=== PATIENT | female | born 1945 | race African-American/Black ===

== ENCOUNTER → 2017-07-21 | Outpatient (CLI) | payer MEDICARE, MEDICAID | END | disposition home or self-care (01) | LOC: RAD 11:14 | DX: M19.011 Primary osteoarthritis, right shoulder (principal); M47.892 Other spondylosis, cervical region | CPT/HCPCS: 72040; 73030 ==

== ENCOUNTER → 2019-07-23 | Outpatient (CLI) | payer MEDICARE, MEDICAID | END | disposition home or self-care (01) | LOC: RAD 09:58 | PROVIDERS: ATTEND Orthopaedic Surgery | DX: M17.0 Bilateral primary osteoarthritis of knee (principal); M47.896 Other spondylosis, lumbar region; M21.959 Unspecified acquired deformity of unspecified thigh | CPT/HCPCS: 72100; 72170; 73560 ==

== ENCOUNTER → 2019-10-01 | Outpatient (CLI) | payer MEDICARE, MEDICAID | END | disposition home or self-care (01) | LOC: MRI 09:18 | PROVIDERS: ATTEND Neurological Surgery | DX: M43.12 Spondylolisthesis, cervical region (principal); M47.812 Spondylosis without myelopathy or radiculopathy, cervical region; M48.02 Spinal stenosis, cervical region; M51.36 Other intervertebral disc degeneration, lumbar region; M48.061 Spinal stenosis, lumbar region without neurogenic claudication | CPT/HCPCS: 72141; 72148 ==

== ENCOUNTER 2020-06-05 17:35 | Inpatient (IN) | payer MEDICARE, MEDICAID ==
[~2020-06-05] VITALS: Ht 165.1 cm; Wt 154.3 kg
[~2020-06-05 17:35] MED LIST: AMLO10TA80 PO; ATOR10TA69 PO; COR6 PO; FURO-151 MT; FURO40TA5 PO; GABA-533 PO; HYDR-4009 PO; LOSA50TA41 MT; PANT40TA4 PO
[2020-06-05 18:15] VITALS: BP 117/54
[2020-06-05] MEDS ORDERED: IPRATROPIUM/ALBUTEROL 0.5-3(2.5)MG/3ML NEB HHN PRN (18:30)
[2020-06-05] MEDS ORDERED: MORPHINE SULFATE 2 MG/ML CPJ (NOT FOR IM USE) IV PRN (18:30)
[2020-06-05] MEDS ORDERED: CLONIDINE 0.1MG TABLET PO PRN (18:30)
[2020-06-05] MEDS ORDERED: ONDANSETRON 4MG ODT PO PRN (18:30)
[2020-06-05] MEDS ORDERED: BISACODYL 10MG SUPP PR PRN (18:30)
[2020-06-05 20:00] VITALS: BP 135/86
[2020-06-05 20:30] VITALS: BP 134/58
[2020-06-06] MEDS: HYDROCODONE/ACETAMINOPHEN 5/325MG TABLET PO PRN ×5 (00:52→23:08)
[2020-06-06] MEDS: ENOXAPARIN 30MG/0.3ML SYR SUBCUT SCH ×2 (06:34→18:01)
[2020-06-06 07:14] LABS: HEMATOCRIT. 35.8 % (36.0-48.0); HEMOGLOBIN. 11.8 g/dL (12.0-16.0); MEAN CORPUSCULAR HEMOGLOBIN 33.2 pg (28.0-32.0); MEAN CORPUSCULAR VOLUME 100.4 fL (81.0-99.0); MEAN PLATELET VOLUME 7.3 fl (7.4-10.4); PLATELET 163 x1000/uL (130-400); RED BLOOD CELL COUNT 3.56 mill/uL (4.2-5.4)
[2020-06-06 07:25] LABS: CHLORIDE 100 mEq/L (98-107)
[2020-06-06 08:00] VITALS: BP 104/60
[2020-06-06] MEDS: POTASSIUM CHLORIDE 20MEQ TABLET SR PO SCH (08:14)
[2020-06-06] MEDS: THIAMINE HCL 100MG TABLET PO SCH (08:15)
[2020-06-06] MEDS: FUROSEMIDE 40MG TABLET PO SCH (08:15)
[2020-06-06] MEDS: SPIRONOLACTONE 25MG TABLET PO SCH (08:15)
[2020-06-06] MEDS: AMLODIPINE 10MG TABLET PO SCH ×2 (08:16→08:20)
[2020-06-06] MEDS: LISINOPRIL 40MG TABLET PO SCH ×2 (08:18→08:21)
[2020-06-06 17:12] LABS: CLARITY URINE TURBID (CLEAR); COLOR URINE YELLOW (YELLOW); KETONES URINE NEGATIVE (NEGATIVE); LEUKOCYTE ESTERASE URINE 3+ (NEGATIVE); NITRITE URINE POSITIVE (NEGATIVE); OCCULT BLOOD URINE 1+ (NEGATIVE); PH URINE 7.5 (4.5-8.0); PROTEIN URINE 1+ (NEGATIVE); SPECIFIC GRAVITY URINE 1.013 (1.005-1.030)
[2020-06-06 19:07] LABS: PLATELET ESTIMATE NORMAL
[2020-06-06 20:00] VITALS: BP 112/64
[2020-06-06] MEDS: MEROPENEM 1,000 MG in SODIUM CHLORIDE 0.9% 100 ML IV SCH (22:39)
[2020-06-07] MEDS: LORAZEPAM 0.5MG TABLET PO PRN ×2 (02:30→22:19)
[2020-06-07] MEDS: MEROPENEM 1,000 MG in SODIUM CHLORIDE 0.9% 100 ML IV SCH ×3 (06:15→18:42)
[2020-06-07] MEDS: ENOXAPARIN 30MG/0.3ML SYR SUBCUT SCH ×2 (06:16→17:07)
[2020-06-07 06:27] LABS: CHLORIDE 102 mEq/L (98-107)
[2020-06-07 06:32] LABS: PHOSPHORUS 4.2 mg/dL (2.5-4.9); TOTAL IRON BINDING CAPACITY 222 ug/dL (250-450)
[2020-06-07 06:35] LABS: CREATINE KINASE 113 IU/L (26-192)
[2020-06-07 06:45] LABS: FERRITIN 237 ng/mL (10-291)
[2020-06-07 06:46] LABS: HEMATOCRIT. 34.2 % (36.0-48.0); HEMOGLOBIN. 11.5 g/dL (12.0-16.0); MEAN CORPUSCULAR HEMOGLOBIN 33.9 pg (28.0-32.0); MEAN CORPUSCULAR VOLUME 100.9 fL (81.0-99.0); MEAN PLATELET VOLUME 7.3 fl (7.4-10.4); PLATELET 163 x1000/uL (130-400); RED BLOOD CELL COUNT 3.39 mill/uL (4.2-5.4)
[2020-06-07 06:57] LABS: VITAMIN B12 SERUM 291 pg/mL (211-911)
[2020-06-07 08:05] VITALS: BP 147/80
[2020-06-07] MEDS: POTASSIUM CHLORIDE 20MEQ TABLET SR PO SCH (08:42)
[2020-06-07] MEDS: SPIRONOLACTONE 25MG TABLET PO SCH (08:42)
[2020-06-07] MEDS: FUROSEMIDE 40MG TABLET PO SCH (08:43)
[2020-06-07] MEDS: THIAMINE HCL 100MG TABLET PO SCH (08:43)
[2020-06-07] MEDS: LISINOPRIL 40MG TABLET PO SCH (08:43)
[2020-06-07] MEDS: AMLODIPINE 10MG TABLET PO SCH (08:43)
[2020-06-07] MEDS: HYDROCODONE/ACETAMINOPHEN 5/325MG TABLET PO PRN ×2 (08:44→15:33)
[2020-06-07] MEDS: CYANOCOBALAMIN 1000MCG/ML VIAL IM SCH (15:20)
[2020-06-07] MEDS: LIDOCAINE 5% PATCH TOP SCH (17:05)
[2020-06-07 20:00] VITALS: BP 111/63
[2020-06-07 22:59] LABS: PLATELET ESTIMATE NORMAL
[2020-06-08] MEDS: MEROPENEM 1,000 MG in SODIUM CHLORIDE 0.9% 100 ML IV SCH ×3 (06:43→11:26)
[2020-06-08] MEDS: ENOXAPARIN 30MG/0.3ML SYR SUBCUT SCH ×2 (06:44→17:08)
[2020-06-08 07:52] VITALS: BP 149/84
[2020-06-08] MEDS: POTASSIUM CHLORIDE 20MEQ TABLET SR PO SCH (08:47)
[2020-06-08] MEDS: LISINOPRIL 40MG TABLET PO SCH (08:47)
[2020-06-08] MEDS: CYANOCOBALAMIN 1000MCG/ML VIAL IM SCH (08:47)
[2020-06-08] MEDS: AMLODIPINE 10MG TABLET PO SCH (08:48)
[2020-06-08] MEDS: FUROSEMIDE 40MG TABLET PO SCH (08:48)
[2020-06-08] MEDS: LIDOCAINE 5% PATCH TOP SCH (08:48)
[2020-06-08] MEDS: SPIRONOLACTONE 25MG TABLET PO SCH (08:48)
[2020-06-08] MEDS: THIAMINE HCL 100MG TABLET PO SCH (09:04)
[2020-06-08 13:49] VITALS: BP 105/56
[2020-06-08] MEDS: HYDROCODONE/ACETAMINOPHEN 5/325MG TABLET PO PRN ×2 (13:51→18:28)
[2020-06-08 18:20] VITALS: BP 128/69
[2020-06-08] MEDS ORDERED: BISACODYL 5MG TABLET PO NR (18:45)
[2020-06-08] MEDS: NITROFURANTOIN 100MG M/M CAPSULE PO SCH (21:01)
[2020-06-08] MEDS: LORAZEPAM 0.5MG TABLET PO PRN (21:02)
[2020-06-09] MEDS: ENOXAPARIN 30MG/0.3ML SYR SUBCUT SCH ×2 (06:12→17:04)
[2020-06-09] MEDS: HYDROCODONE/ACETAMINOPHEN 5/325MG TABLET PO PRN ×2 (06:46→13:47)
[2020-06-09 07:35] VITALS: BP 116/61
[2020-06-09] MEDS: CYANOCOBALAMIN 1000MCG/ML VIAL IM SCH (08:30)
[2020-06-09] MEDS: LIDOCAINE 5% PATCH TOP SCH (08:30)
[2020-06-09] MEDS: NITROFURANTOIN 100MG M/M CAPSULE PO SCH ×2 (08:30→21:16)
[2020-06-09] MEDS: FUROSEMIDE 40MG TABLET PO SCH (08:30)
[2020-06-09] MEDS: SPIRONOLACTONE 25MG TABLET PO SCH (08:30)
[2020-06-09] MEDS: THIAMINE HCL 100MG TABLET PO SCH (08:30)
[2020-06-09] MEDS: AMLODIPINE 10MG TABLET PO SCH (08:30)
[2020-06-09] MEDS: LISINOPRIL 40MG TABLET PO SCH (08:30)
[2020-06-09] MEDS: POTASSIUM CHLORIDE 20MEQ TABLET SR PO SCH (08:30)
[2020-06-09] MEDS ORDERED: BISACODYL 5MG TABLET PO PRN (13:30)
[2020-06-09 20:00] VITALS: BP 114/59
[2020-06-09] MEDS: LORAZEPAM 0.5MG TABLET PO PRN (21:16)
[2020-06-09] MEDS: GABAPENTIN 100MG CAPSULE PO SCH (21:16)
[2020-06-10] MEDS: GABAPENTIN 100MG CAPSULE PO SCH ×3 (06:28→21:37)
[2020-06-10] MEDS: ENOXAPARIN 30MG/0.3ML SYR SUBCUT SCH ×2 (06:29→09:35)
[2020-06-10] MEDS: HYDROCODONE/ACETAMINOPHEN 5/325MG TABLET PO PRN ×2 (07:38→12:11)
[2020-06-10 07:47] LABS: HEMATOCRIT. 36.3 % (36.0-48.0); HEMOGLOBIN. 12.1 g/dL (12.0-16.0); MEAN CORPUSCULAR HEMOGLOBIN 33.7 pg (28.0-32.0); MEAN CORPUSCULAR VOLUME 100.6 fL (81.0-99.0); MEAN PLATELET VOLUME 7.2 fl (7.4-10.4); PLATELET 184 x1000/uL (130-400); RED CELL DISTRIBUTION WIDTH 13.9 % (11.6-14.6)
[2020-06-10 07:56] LABS: CHLORIDE 106 mEq/L (98-107)
[2020-06-10 08:30] VITALS: BP 131/73
[2020-06-10] MEDS: LIDOCAINE 5% PATCH TOP SCH (09:34)
[2020-06-10] MEDS: THIAMINE HCL 100MG TABLET PO SCH (09:36)
[2020-06-10] MEDS: FUROSEMIDE 40MG TABLET PO SCH (09:36)
[2020-06-10] MEDS: SPIRONOLACTONE 25MG TABLET PO SCH (09:36)
[2020-06-10] MEDS: AMLODIPINE 10MG TABLET PO SCH (09:36)
[2020-06-10] MEDS: NITROFURANTOIN 100MG M/M CAPSULE PO SCH ×2 (09:36→21:37)
[2020-06-10] MEDS: LISINOPRIL 40MG TABLET PO SCH (09:36)
[2020-06-10] MEDS: POTASSIUM CHLORIDE 20MEQ TABLET SR PO SCH (09:36)
[2020-06-10] MEDS: CYANOCOBALAMIN 1000MCG/ML VIAL IM SCH (09:38)
[2020-06-10 14:06] LABS: PLATELET ESTIMATE NORMAL
[2020-06-10 20:00] VITALS: BP 111/57
[2020-06-11] MEDS: GABAPENTIN 100MG CAPSULE PO SCH ×3 (06:19→21:35)
[2020-06-11] MEDS: ENOXAPARIN 30MG/0.3ML SYR SUBCUT SCH ×2 (06:24→17:12)
[2020-06-11 07:52] VITALS: BP 111/53
[2020-06-11] MEDS: LIDOCAINE 5% PATCH TOP SCH (08:36)
[2020-06-11] MEDS: SPIRONOLACTONE 25MG TABLET PO SCH (08:37)
[2020-06-11] MEDS: CYANOCOBALAMIN 1000MCG/ML VIAL IM SCH (08:37)
[2020-06-11] MEDS: POTASSIUM CHLORIDE 20MEQ TABLET SR PO SCH (08:37)
[2020-06-11] MEDS: NITROFURANTOIN 100MG M/M CAPSULE PO SCH ×2 (08:37→21:34)
[2020-06-11] MEDS: LISINOPRIL 40MG TABLET PO SCH (08:38)
[2020-06-11] MEDS: FUROSEMIDE 40MG TABLET PO SCH (08:38)
[2020-06-11] MEDS: AMLODIPINE 10MG TABLET PO SCH (08:38)
[2020-06-11] MEDS: THIAMINE HCL 100MG TABLET PO SCH (13:07)
[2020-06-11 17:06] LABS: 25-HYDROXY VITAMIN D3 20 ng/mL (.)
[2020-06-11 22:20] VITALS: BP 129/66
[2020-06-12] MEDS: GABAPENTIN 100MG CAPSULE PO SCH ×3 (06:21→21:52)
[2020-06-12] MEDS: ENOXAPARIN 30MG/0.3ML SYR SUBCUT SCH ×2 (06:22→17:00)
[2020-06-12 08:00] VITALS: BP 122/58
[2020-06-12] MEDS: LIDOCAINE 5% PATCH TOP SCH (08:18)
[2020-06-12] MEDS: POTASSIUM CHLORIDE 20MEQ TABLET SR PO SCH (08:19)
[2020-06-12] MEDS: SPIRONOLACTONE 25MG TABLET PO SCH (08:19)
[2020-06-12] MEDS: FUROSEMIDE 40MG TABLET PO SCH (08:19)
[2020-06-12] MEDS: CYANOCOBALAMIN 1000MCG/ML VIAL IM SCH (08:19)
[2020-06-12] MEDS: THIAMINE HCL 100MG TABLET PO SCH (08:20)
[2020-06-12] MEDS: AMLODIPINE 10MG TABLET PO SCH (08:20)
[2020-06-12] MEDS: LISINOPRIL 40MG TABLET PO SCH (08:20)
[2020-06-12] MEDS: NITROFURANTOIN 100MG M/M CAPSULE PO SCH ×2 (08:20→21:52)
[2020-06-12] MEDS: HYDROCODONE/ACETAMINOPHEN 5/325MG TABLET PO PRN ×2 (08:20→14:19)
[2020-06-12 20:00] VITALS: BP 109/70
[2020-06-13] VITALS: BP 117/62
[2020-06-13] MEDS: GABAPENTIN 100MG CAPSULE PO SCH ×3 (05:38→21:26)
[2020-06-13] MEDS: ENOXAPARIN 30MG/0.3ML SYR SUBCUT SCH ×2 (05:39→17:10)
[2020-06-13 07:56] VITALS: BP 117/64
[2020-06-13] MEDS: LIDOCAINE 5% PATCH TOP SCH (08:15)
[2020-06-13] MEDS: CYANOCOBALAMIN 1000MCG/ML VIAL IM SCH (08:15)
[2020-06-13] MEDS: FUROSEMIDE 40MG TABLET PO SCH (08:16)
[2020-06-13] MEDS: HYDROCODONE/ACETAMINOPHEN 5/325MG TABLET PO PRN ×2 (08:16→12:41)
[2020-06-13] MEDS: LISINOPRIL 40MG TABLET PO SCH (08:16)
[2020-06-13] MEDS: POTASSIUM CHLORIDE 20MEQ TABLET SR PO SCH (08:16)
[2020-06-13] MEDS: NITROFURANTOIN 100MG M/M CAPSULE PO SCH ×2 (08:16→21:26)
[2020-06-13] MEDS: THIAMINE HCL 100MG TABLET PO SCH (08:16)
[2020-06-13] MEDS: SPIRONOLACTONE 25MG TABLET PO SCH (08:16)
[2020-06-13] MEDS: AMLODIPINE 10MG TABLET PO SCH (08:16)
[2020-06-13 12:06] VITALS: BP 107/65
[2020-06-13] MEDS: ERGOCALCIFEROL 50000UNITS CAPSULE PO SCH (13:36)
[2020-06-13 20:00] VITALS: BP 120/67
[2020-06-14] MEDS: ENOXAPARIN 30MG/0.3ML SYR SUBCUT SCH (05:25)
[2020-06-14] MEDS: GABAPENTIN 100MG CAPSULE PO SCH ×3 (05:25→21:08)
[2020-06-14 06:53] LABS: CHLORIDE 107 mEq/L (98-107)
[2020-06-14 07:07] LABS: HEMATOCRIT. 35.1 % (36.0-48.0); HEMOGLOBIN. 11.8 g/dL (12.0-16.0); MEAN CORPUSCULAR HEMOGLOBIN 33.8 pg (28.0-32.0); MEAN CORPUSCULAR VOLUME 100.4 fL (81.0-99.0); MEAN PLATELET VOLUME 7.4 fl (7.4-10.4); PLATELET 209 x1000/uL (130-400); RED CELL DISTRIBUTION WIDTH 13.5 % (11.6-14.6)
[2020-06-14] MEDS: HYDROCODONE/ACETAMINOPHEN 5/325MG TABLET PO PRN ×3 (08:03→16:32)
[2020-06-14 08:24] VITALS: BP 99/55
[2020-06-14] MEDS: LISINOPRIL 40MG TABLET PO SCH (09:00)
[2020-06-14] MEDS: AMLODIPINE 10MG TABLET PO SCH (09:00)
[2020-06-14] MEDS: LIDOCAINE 5% PATCH TOP SCH (09:47)
[2020-06-14] MEDS: THIAMINE HCL 100MG TABLET PO SCH (09:47)
[2020-06-14] MEDS: SPIRONOLACTONE 25MG TABLET PO SCH (09:47)
[2020-06-14] MEDS: FUROSEMIDE 40MG TABLET PO SCH (09:47)
[2020-06-14] MEDS: POTASSIUM CHLORIDE 20MEQ TABLET SR PO SCH (09:47)
[2020-06-14 10:40] LABS: PLATELET ESTIMATE NORMAL
[2020-06-14] MEDS ORDERED: SIMETHICONE 80MG TABLET CHEW PO PRN (12:15)
[2020-06-14] MEDS: LIDOCAINE HCL 4% CREAM 76GM TUBE TP SCH (16:33)
[2020-06-14] MEDS: ENOXAPARIN 40MG/0.4ML SYR SUBCUT SCH (17:04)
[2020-06-14 20:00] VITALS: BP 105/59
[2020-06-15] MEDS: ENOXAPARIN 40MG/0.4ML SYR SUBCUT SCH ×2 (06:23→17:05)
[2020-06-15] MEDS: GABAPENTIN 100MG CAPSULE PO SCH ×3 (06:23→22:04)
[2020-06-15 08:00] VITALS: BP 113/55
[2020-06-15] MEDS: LISINOPRIL 40MG TABLET PO SCH (08:15)
[2020-06-15] MEDS: SPIRONOLACTONE 25MG TABLET PO SCH (08:15)
[2020-06-15] MEDS: FUROSEMIDE 40MG TABLET PO SCH (08:15)
[2020-06-15] MEDS: AMLODIPINE 10MG TABLET PO SCH (08:15)
[2020-06-15] MEDS: HYDROCODONE/ACETAMINOPHEN 5/325MG TABLET PO PRN ×2 (08:16→11:57)
[2020-06-15] MEDS: POTASSIUM CHLORIDE 20MEQ TABLET SR PO SCH (08:16)
[2020-06-15] MEDS: LIDOCAINE HCL 4% CREAM 76GM TUBE TP SCH ×4 (08:19→16:23)
[2020-06-15] MEDS: THIAMINE HCL 100MG TABLET PO SCH (08:20)
[2020-06-15 20:00] VITALS: BP 132/73
[2020-06-15] MEDS: ACETAMINOPHEN 325MG TABLET PO PRN (20:51)
[2020-06-15] MEDS ORDERED: NA PHOS,M-B/NA PHOS,DI-BA ENEMA 118ML PR PRN (21:30)
[2020-06-16] MEDS ORDERED: LACTULOSE 20G/30ML UDC PO SCH
[2020-06-16] MEDS: GABAPENTIN 100MG CAPSULE PO SCH ×3 (05:31→21:42)
[2020-06-16] MEDS: ENOXAPARIN 40MG/0.4ML SYR SUBCUT SCH ×2 (05:32→17:11)
[2020-06-16 08:00] VITALS: BP 113/62
[2020-06-16] MEDS ORDERED: LACTULOSE 20G/30ML UDC PO PRN (09:00)
[2020-06-16] MEDS: LISINOPRIL 40MG TABLET PO SCH (09:03)
[2020-06-16] MEDS: AMLODIPINE 10MG TABLET PO SCH (09:03)
[2020-06-16] MEDS: THIAMINE HCL 100MG TABLET PO SCH (09:04)
[2020-06-16] MEDS: ACETAMINOPHEN 325MG TABLET PO PRN (09:04)
[2020-06-16] MEDS: POTASSIUM CHLORIDE 20MEQ TABLET SR PO SCH (09:04)
[2020-06-16] MEDS: SPIRONOLACTONE 25MG TABLET PO SCH (09:04)
[2020-06-16] MEDS: LIDOCAINE HCL 4% CREAM 76GM TUBE TP SCH ×3 (09:05→17:11)
[2020-06-16] MEDS: DOCUSATE SODIUM 100MG CAPSULE PO SCH ×2 (11:15→12:31)
[2020-06-16 20:00] VITALS: BP 110/59
[2020-06-16] MEDS: HYDROCODONE/ACETAMINOPHEN 5/325MG TABLET PO PRN (20:50)
[2020-06-17] MEDS: GABAPENTIN 100MG CAPSULE PO SCH ×3 (05:31→21:40)
[2020-06-17] MEDS: ENOXAPARIN 40MG/0.4ML SYR SUBCUT SCH ×2 (05:31→17:04)
[2020-06-17 07:18] LABS: BASOPHILS % 0.7 % (0.0-2.0); EOSINOPHILS % 2.6 % (0.0-5.0); HEMATOCRIT. 36.9 % (36.0-48.0); HEMOGLOBIN. 12.4 g/dL (12.0-16.0); MEAN CORPUSCULAR HEMOGLOBIN 34.1 pg (28.0-32.0); MEAN PLATELET VOLUME 7.5 fl (7.4-10.4); MONOCYTES % 14.2 % (2.0-8.0); NEUTROPHILS % 34.5 % (40.0-76.0); PLATELET 219 x1000/uL (130-400); RED BLOOD CELL COUNT 3.65 mill/uL (4.2-5.4); RED CELL DISTRIBUTION WIDTH 13.4 % (11.6-14.6)
[2020-06-17 08:00] VITALS: BP 99/40
[2020-06-17] MEDS: LISINOPRIL 40MG TABLET PO SCH ×2 (09:00→10:14)
[2020-06-17] MEDS: AMLODIPINE 10MG TABLET PO SCH (09:00)
[2020-06-17] MEDS: DOCUSATE SODIUM 100MG CAPSULE PO SCH (09:00)
[2020-06-17] MEDS: THIAMINE HCL 100MG TABLET PO SCH (09:31)
[2020-06-17] MEDS: LIDOCAINE HCL 4% CREAM 76GM TUBE TP SCH ×3 (09:31→17:04)
[2020-06-17 10:12] VITALS: BP 112/56
[2020-06-17] MEDS: HYDROCODONE/ACETAMINOPHEN 5/325MG TABLET PO PRN (10:13)
[2020-06-17] MEDS: SPIRONOLACTONE 25MG TABLET PO SCH (10:14)
[2020-06-17 20:00] VITALS: BP 98/44
[2020-06-18] MEDS: ACETAMINOPHEN 325MG TABLET PO PRN ×2 (02:07→18:06)
[2020-06-18] MEDS: ENOXAPARIN 40MG/0.4ML SYR SUBCUT SCH ×2 (06:00→17:26)
[2020-06-18] MEDS: GABAPENTIN 100MG CAPSULE PO SCH ×3 (06:01→21:58)
[2020-06-18 07:24] LABS: CHLORIDE 105 mEq/L (98-107)
[2020-06-18 07:58] VITALS: BP 109/62
[2020-06-18 08:48] VITALS: BP 81/40
[2020-06-18] MEDS: THIAMINE HCL 100MG TABLET PO SCH (08:49)
[2020-06-18] MEDS: DOCUSATE SODIUM 100MG CAPSULE PO SCH (08:49)
[2020-06-18] MEDS: AMLODIPINE 10MG TABLET PO SCH (08:55)
[2020-06-18] MEDS: LIDOCAINE HCL 4% CREAM 76GM TUBE TP SCH ×3 (10:11→17:27)
[2020-06-18 10:12] VITALS: BP 117/61
[2020-06-18] MEDS: SPIRONOLACTONE 25MG TABLET PO SCH (10:13)
[2020-06-18] MEDS: LACTULOSE 20G/30ML UDC PO SCH ×3 (12:00→19:37)
[2020-06-18] MEDS: BISACODYL 10MG SUPP PR SCH (12:45)
[2020-06-18 20:00] VITALS: BP 115/63
[2020-06-18 23:45] LABS: VITAMIN B12 SERUM > 2000.0 pg/mL (211-911)
[2020-06-19] MEDS: GABAPENTIN 100MG CAPSULE PO SCH ×3 (05:48→21:07)
[2020-06-19] MEDS: ENOXAPARIN 40MG/0.4ML SYR SUBCUT SCH ×2 (05:49→17:06)
[2020-06-19 07:18] LABS: CHLORIDE 108 mEq/L (98-107)
[2020-06-19 08:00] VITALS: BP 110/56
[2020-06-19] MEDS: LISINOPRIL 40MG TABLET PO SCH (08:22)
[2020-06-19] MEDS: DOCUSATE SODIUM 100MG CAPSULE PO SCH (08:22)
[2020-06-19] MEDS: THIAMINE HCL 100MG TABLET PO SCH (08:22)
[2020-06-19] MEDS: HYDROCODONE/ACETAMINOPHEN 5/325MG TABLET PO PRN ×3 (08:23→17:49)
[2020-06-19] MEDS: LIDOCAINE HCL 4% CREAM 76GM TUBE TP SCH ×3 (08:25→17:07)
[2020-06-19] MEDS: BISACODYL 10MG SUPP PR SCH (09:00)
[2020-06-19] MEDS: FUROSEMIDE 20MG TABLET PO SCH (17:04)
[2020-06-19 20:00] VITALS: BP 111/60
[2020-06-20] MEDS: GABAPENTIN 100MG CAPSULE PO SCH ×2 (06:10→13:31)
[2020-06-20] MEDS: ENOXAPARIN 40MG/0.4ML SYR SUBCUT SCH (06:10)
[2020-06-20 08:00] VITALS: BP 120/70
[2020-06-20] MEDS ORDERED: CYANOCOBALAMIN 1000MCG/ML VIAL IM SCH (09:00)
[2020-06-20] MEDS: BISACODYL 10MG SUPP PR SCH (09:00)
[2020-06-20] MEDS: ERGOCALCIFEROL 50000UNITS CAPSULE PO SCH (09:54)
[2020-06-20] MEDS: DOCUSATE SODIUM 100MG CAPSULE PO SCH (09:54)
[2020-06-20] MEDS: THIAMINE HCL 100MG TABLET PO SCH (09:54)
[2020-06-20] MEDS: FUROSEMIDE 20MG TABLET PO SCH (09:54)
[2020-06-20] MEDS: LISINOPRIL 40MG TABLET PO SCH (09:54)
[2020-06-20] MEDS: LIDOCAINE HCL 4% CREAM 76GM TUBE TP SCH ×2 (09:55→13:31)
[2020-06-20] MEDS ORDERED: GABA-529 PO (10:12)
[2020-06-20 11:25] VITALS: BP 120/70
== END 2020-06-20 15:00 | disposition home health service (06) | DRG 947 ==
PROVIDERS: ADMIT Physical Medicine & Rehabilitation Spinal Cord Injury Medicine; ATTEND Internal Medicine Nephrology
DX: R53.81 Other malaise (principal); I50.33 Acute on chronic diastolic (congestive) heart failure; G82.50 Quadriplegia, unspecified; E44.1 Mild protein-calorie malnutrition; K59.2 Neurogenic bowel, not elsewhere classified; M48.02 Spinal stenosis, cervical region; N39.0 Urinary tract infection, site not specified; Z68.43 Body mass index [BMI] 50.0-59.9, adult; M48.061 Spinal stenosis, lumbar region without neurogenic claudication; I11.0 Hypertensive heart disease with heart failure; D64.9 Anemia, unspecified; E87.6 Hypokalemia; E78.5 Hyperlipidemia, unspecified; E66.01 Morbid (severe) obesity due to excess calories; M94.0 Chondrocostal junction syndrome [Tietze]; N31.9 Neuromuscular dysfunction of bladder, unspecified
CPT/HCPCS: 36415; 80048; 80053; 81003; 82306; 82550; 82607; 82728; 82746; 83540; 83550; 83735; 84100; 84134; 84443; 85025; 87077; 87186; 93970; 97110; 97116; 97162; 97166; 97530; 97535; 97542; J1650; J2185; J2270; J3420; J7050; Q0162

== ENCOUNTER 2020-06-26 17:42 | Inpatient (IN) | payer MEDICARE, MEDICAID ==
[~2020-06-26] VITALS: Ht 165.1 cm; Wt 125.6 kg
[2020-06-26] MEDS: THIAMINE HCL 100MG TABLET PO SCH (02:35)
[~2020-06-26 17:42] MED LIST changes: -FURO-151 MT; +GABA-529 PO
[2020-06-26 19:08] LABS: BASOPHILS % 0.3 % (0.0-2.0); EOSINOPHILS % 2.8 % (0.0-5.0); HEMATOCRIT. 37.6 % (36.0-48.0); HEMOGLOBIN. 12.5 g/dL (12.0-16.0); MEAN CORPUSCULAR HEMOGLOBIN 33.4 pg (28.0-32.0); MEAN CORPUSCULAR VOLUME 100.4 fL (81.0-99.0); MEAN PLATELET VOLUME 7.1 fl (7.4-10.4); NEUTROPHILS % 60.9 % (40.0-76.0); PLATELET 232 x1000/uL (130-400); RED BLOOD CELL COUNT 3.74 mill/uL (4.2-5.4); RED CELL DISTRIBUTION WIDTH 12.8 % (11.6-14.6)
[2020-06-26 19:13] LABS: CHLORIDE 94 mEq/L (98-107)
[2020-06-26] MEDS ORDERED: ACETAMINOPHEN 325MG TABLET PO ONE (20:00)
[2020-06-26] MEDS ORDERED: FUROSEMIDE 40MG/4ML VIAL IV STA (20:07)
[2020-06-26] MEDS ORDERED: INSULIN REGULAR (HUMULIN R) 300UNITS/3ML IV ONE (20:15)
[2020-06-26] MEDS ORDERED: CALCIUM GLUCONATE 100MG/ML 10ML VIAL IV ONE (20:15)
[2020-06-26] MEDS ORDERED: SODIUM CHLORIDE 0.9% 250 ML IV ONE (20:15)
[2020-06-26] MEDS ORDERED: DEXTROSE 50% WATER 50ML SYRINGE IV ONE ×2 (20:15→22:30)
[2020-06-26] MEDS ORDERED: SODIUM POLYSTYRENE SULFONATE 15 G/60 ML BOT PO ONE (21:45)
[2020-06-26] MEDS ORDERED: SODIUM CHLORIDE 0.9% 1,000 ML IV NR (23:00)
[2020-06-26] MEDS ORDERED: ACETAMINOPHEN 325MG TABLET PO PRN (23:45)
[2020-06-26] MEDS ORDERED: ONDANSETRON HCL 4MG/2ML INJ IV PRN (23:45)
[2020-06-26] MEDS ORDERED: MORPHINE SULFATE 2 MG/ML CPJ (NOT FOR IM USE) IV PRN (23:45)
[2020-06-26] MEDS ORDERED: HYDROCODONE/ACETAMINOPHEN 5/325MG TABLET PO PRN (23:45)
[2020-06-26] MEDS ORDERED: CLONIDINE 0.1MG TABLET PO PRN (23:45)
[2020-06-26] MEDS ORDERED: IPRATROPIUM/ALBUTEROL 0.5-3(2.5)MG/3ML NEB NEB PRN (23:45)
[2020-06-26] MEDS ORDERED: LORAZEPAM 2MG/ML CPJ IV PRN (23:45)
[2020-06-27] MEDS ORDERED: ENOXAPARIN 30MG/0.3ML SYR SUBCUT SCH (01:00)
[2020-06-27] MEDS ORDERED: MVI, ADULT NO.1 10 ML, FOLIC ACID 1 MG, THIAMINE HCL 100 MG in SODIUM CHLORIDE 0.9% 1,0... IV NR ×4 (01:00)
[2020-06-27 04:00] VITALS: BP 115/52
[2020-06-27] MEDS ORDERED: ATEN50TA MT (05:12)
[2020-06-27 05:56] VITALS: BP 115/52
[2020-06-27 08:00] VITALS: BP 90/40
[2020-06-27 09:32] LABS: BASOPHILS % 0.4 % (0.0-2.0); EOSINOPHILS % 3.7 % (0.0-5.0); HEMATOCRIT. 34.7 % (36.0-48.0); HEMOGLOBIN. 11.7 g/dL (12.0-16.0); LYMPHOCYTES % 27.6 % (20.0-50.0); MEAN CORPUSCULAR HEMOGLOBIN 33.6 pg (28.0-32.0); MEAN PLATELET VOLUME 7.6 fl (7.4-10.4); MONOCYTES % 14.3 % (2.0-8.0); PLATELET 206 x1000/uL (130-400); RED BLOOD CELL COUNT 3.47 mill/uL (4.2-5.4); RED CELL DISTRIBUTION WIDTH 13.5 % (11.6-14.6)
[2020-06-27] MEDS: THIAMINE HCL 100MG TABLET PO SCH (09:49)
[2020-06-27] MEDS: SODIUM CHLORIDE 0.45% 1,000 ML IV SCH ×2 (11:59→16:02)
[2020-06-27 12:00] VITALS: BP 110/55
[2020-06-27] MEDS: HYDROCODONE/ACETAMINOPHEN 10/325MG TABLET PO PRN ×2 (12:00→16:40)
[2020-06-27] MEDS ORDERED: SODIUM POLYSTYRENE SULFONATE 15 G/60 ML BOT PO NR (12:00)
[2020-06-27 16:00] VITALS: BP 119/69
[2020-06-27 18:23] LABS: CLARITY URINE CLEAR (CLEAR); COLOR URINE YELLOW (YELLOW); KETONES URINE NEGATIVE (NEGATIVE); LEUKOCYTE ESTERASE URINE 1+ (NEGATIVE); NITRITE URINE NEGATIVE (NEGATIVE); OCCULT BLOOD URINE NEGATIVE (NEGATIVE); PROTEIN URINE NEGATIVE (NEGATIVE); SPECIFIC GRAVITY URINE 1.012 (1.005-1.030); UROBILINOGEN URINE 0.2 E.U./dL (0.2-1.0)
[2020-06-27 20:00] VITALS: BP 95/52
[2020-06-27] MEDS ORDERED: ENOXAPARIN 40MG/0.4ML SYR SUBCUT SCH (21:00)
[2020-06-28] VITALS (7 sets, daily range): BP systolic 101–120; BP diastolic 48–66
[2020-06-28 06:44] LABS: HEMATOCRIT. 32.7 % (36.0-48.0); HEMOGLOBIN. 11.2 g/dL (12.0-16.0); MEAN CORPUSCULAR VOLUME 99.3 fL (81.0-99.0); MEAN PLATELET VOLUME 7.1 fl (7.4-10.4); PLATELET 172 x1000/uL (130-400); RED BLOOD CELL COUNT 3.29 mill/uL (4.2-5.4); RED CELL DISTRIBUTION WIDTH 13.2 % (11.6-14.6)
[2020-06-28] MEDS: THIAMINE HCL 100MG TABLET PO SCH (08:42)
[2020-06-28] MEDS: SODIUM CHLORIDE 0.45% 1,000 ML IV SCH (08:42)
[2020-06-28] MEDS: HYDROCODONE/ACETAMINOPHEN 10/325MG TABLET PO PRN (08:50)
[2020-06-28 10:46] LABS: PLATELET ESTIMATE NORMAL
== END 2020-06-28 20:25 | disposition home health service (06) | DRG 640 ==
LOC: ER 17:42 → MICUSO 21:42 → EDBEDREQTM 21:44 → EDBEDREQ 21:44 → ENRESERV 22:36 → 8WST 06-27 03:16
PROVIDERS: ADMIT Internal Medicine Nephrology; ATTEND Internal Medicine Nephrology
DX: E87.5 Hyperkalemia (principal); N17.0 Acute kidney failure with tubular necrosis; I13.0 Hypertensive heart and chronic kidney disease with heart failure and stage 1 through stage 4 chronic kidney disease, or unspecified chronic kidney disease; I50.32 Chronic diastolic (congestive) heart failure; Z68.42 Body mass index [BMI] 45.0-49.9, adult; N39.0 Urinary tract infection, site not specified; E87.1 Hypo-osmolality and hyponatremia; M48.00 Spinal stenosis, site unspecified; N18.9 Chronic kidney disease, unspecified; E66.01 Morbid (severe) obesity due to excess calories; E11.22 Type 2 diabetes mellitus with diabetic chronic kidney disease; E78.5 Hyperlipidemia, unspecified; E87.8 Other disorders of electrolyte and fluid balance, not elsewhere classified; E11.42 Type 2 diabetes mellitus with diabetic polyneuropathy; G47.33 Obstructive sleep apnea (adult) (pediatric); Z88.1 Allergy status to other antibiotic agents; Z88.0 Allergy status to penicillin; Z88.2 Allergy status to sulfonamides; Z79.899 Other long term (current) drug therapy; Z79.891 Long term (current) use of opiate analgesic; Z83.3 Family history of diabetes mellitus; I95.9 Hypotension, unspecified
CPT/HCPCS: 36415; 71045; 74176; 80048; 80053; 81003; 82962; 83036; 83880; 84484; 85025; 87077; 87186; 93005; 97162; 97530; 99285; J0610; J1650; J1815; J1940; J2270; J3411; J3490; J7030

== ENCOUNTER 2020-09-18 10:01 | Emergency (ER) | payer MEDICARE, MEDICAID ==
[~2020-09-18] VITALS: Ht 165.1 cm; Wt 123.0 kg
[~2020-09-18 10:01] MED LIST changes: -AMLO10TA80 PO; -ATOR10TA69 PO; -COR6 PO; -FURO40TA5 PO; -GABA-533 PO; -LOSA50TA41 MT; -PANT40TA4 PO; +PANT40TA51 PO
[2020-09-18] MEDS ORDERED: MORPHINE SULFATE 4 MG/ML CPJ (NOT FOR IM USE) IV STA (10:42)
[2020-09-18 11:31] LABS: CHLORIDE 101 mEq/L (98-107)
[2020-09-18 11:32] LABS: HEMATOCRIT. 37.6 % (36.0-48.0); HEMOGLOBIN. 12.4 g/dL (12.0-16.0); MEAN CORPUSCULAR HEMOGLOBIN 32.7 pg (28.0-32.0); MEAN CORPUSCULAR VOLUME 99.1 fL (81.0-99.0); MEAN PLATELET VOLUME 7.3 fl (7.4-10.4); PLATELET 211 x1000/uL (130-400); RED BLOOD CELL COUNT 3.79 mill/uL (4.2-5.4); RED CELL DISTRIBUTION WIDTH 14.9 % (11.6-14.6)
[2020-09-18 12:00] LABS: PLATELET ESTIMATE NORMAL
[2020-09-18 18:43] VITALS: BP 115/89
== END 2020-09-18 18:45 | disposition home or self-care (01) ==
LOC: ER 10:36
DX: I82.411 Acute embolism and thrombosis of right femoral vein (principal); L03.115 Cellulitis of right lower limb
CPT/HCPCS: 36415; 80053; 85025; 93971; 96374; 99284; J2270

== ENCOUNTER 2020-09-24 09:56 | Inpatient (IN) | payer MEDICARE, MEDICAID ==
[~2020-09-24] VITALS: Ht 165.1 cm; Wt 122.5 kg
[2020-09-24] MEDS ORDERED: HYDROCODONE/ACETAMINOPHEN 5/325MG TABLET PO STA (10:36)
[2020-09-24] MEDS ORDERED: VANCOMYCIN 1 G PREMIX 200 ML IV ONE (10:45)
[2020-09-24] MEDS ORDERED: LEVOFLOXACIN 750MG PREMIX 150 ML IV ONE (10:45)
[2020-09-24 14:22] LABS: HEMATOCRIT. 30.9 % (36.0-48.0); HEMOGLOBIN. 10.2 g/dL (12.0-16.0); MEAN CORPUSCULAR HEMOGLOBIN 32.3 pg (28.0-32.0); MEAN CORPUSCULAR VOLUME 98.2 fL (81.0-99.0); MEAN PLATELET VOLUME 7.3 fl (7.4-10.4); PLATELET 342 x1000/uL (130-400); RED BLOOD CELL COUNT 3.15 mill/uL (4.2-5.4); RED CELL DISTRIBUTION WIDTH 15.2 % (11.6-14.6)
[2020-09-24 14:26] LABS: CHLORIDE 104 mEq/L (98-107)
[2020-09-24 14:44] LABS: INR 1.5; PROTHROMBIN TIME 15.4 sec (9.6-11.0)
[2020-09-24 15:28] LABS: PLATELET ESTIMATE NORMAL
[2020-09-24] MEDS ORDERED: IPRATROPIUM/ALBUTEROL 0.5-3(2.5)MG/3ML NEB HHN PRN (15:45)
[2020-09-24] MEDS ORDERED: DOCUSATE SODIUM 100MG CAPSULE PO PRN (15:45)
[2020-09-24] MEDS ORDERED: MORPHINE SULFATE 2 MG/ML CPJ (NOT FOR IM USE) IV PRN (15:45)
[2020-09-24] MEDS ORDERED: ONDANSETRON HCL 4MG/2ML INJ IV PRN (15:45)
[2020-09-24] MEDS ORDERED: CLONIDINE 0.1MG TABLET PO PRN (15:45)
[2020-09-24] MEDS ORDERED: LORAZEPAM 0.5MG TABLET PO PRN (15:45)
[2020-09-24] MEDS: ENOXAPARIN 30MG/0.3ML SYR SUBCUT SCH (18:51)
[2020-09-24] MEDS: GABAPENTIN 100MG CAPSULE PO SCH (22:59)
[2020-09-25] MEDS ORDERED: VANCOMYCIN 1250MG in DEXTROSE 5% WATER 250ML IV NR (01:00)
[2020-09-25] MEDS ORDERED: LOSA25TA26 MT (04:45)
[2020-09-25] MEDS ORDERED: APIX5TAB MT (04:45)
[2020-09-25] MEDS ORDERED: FURO40TA5 MT (04:45)
[2020-09-25] MEDS ORDERED: CHOL400T31 (04:45)
[2020-09-25] MEDS ORDERED: ASCO100T12 MT (04:45)
[2020-09-25] MEDS ORDERED: DOXY150T5 PO (04:45)
[2020-09-25 04:49] VITALS: BP 105/50
[2020-09-25] MEDS: GABAPENTIN 100MG CAPSULE PO SCH ×3 (06:27→22:49)
[2020-09-25] MEDS: ENOXAPARIN 30MG/0.3ML SYR SUBCUT SCH (06:28)
[2020-09-25 08:00] VITALS: BP 124/68
[2020-09-25 08:25] LABS: TOTAL IRON BINDING CAPACITY 154 ug/dL (250-450)
[2020-09-25 08:44] LABS: FOLIC ACID (FOLATE) SERUM 6.2 ng/mL (>5.38)
[2020-09-25] MEDS: ACETAMINOPHEN 325MG TABLET PO PRN (09:56)
[2020-09-25 12:00] VITALS: BP 113/59
[2020-09-25] MEDS ORDERED: VANCOMYCIN 1 G PREMIX 200 ML IV SCH (13:00)
[2020-09-25] MEDS ORDERED: FUROSEMIDE 100MG/10ML VIAL IVP NR (13:30)
[2020-09-25 16:00] VITALS: BP 128/64
[2020-09-25] MEDS: ENOXAPARIN 40MG/0.4ML SYR SUBCUT SCH (17:33)
[2020-09-25 20:00] VITALS: BP 125/70
[2020-09-25] MEDS: VANCOMYCIN 1 G PREMIX 200 ML IV SCH (20:48)
[2020-09-25] MEDS: FUROSEMIDE 40MG/4ML VIAL IVP SCH (20:49)
[2020-09-25] MEDS: HYDROCODONE/ACETAMINOPHEN 5/325MG TABLET PO PRN (22:50)
[2020-09-26] VITALS: BP 109/54
[2020-09-26 04:00] VITALS: BP 117/65
[2020-09-26] MEDS: FUROSEMIDE 40MG/4ML VIAL IVP SCH ×2 (06:07→17:19)
[2020-09-26] MEDS: GABAPENTIN 100MG CAPSULE PO SCH ×3 (06:07→22:51)
[2020-09-26] MEDS: ENOXAPARIN 40MG/0.4ML SYR SUBCUT SCH ×2 (06:07→17:20)
[2020-09-26 07:35] LABS: CHLORIDE 101 mEq/L (98-107)
[2020-09-26 08:00] VITALS: BP 114/74
[2020-09-26] MEDS: PANTOPRAZOLE 40MG DR TABLET PO SCH ×2 (08:55→09:00)
[2020-09-26] MEDS: SPIRONOLACTONE 25MG TABLET PO SCH (08:56)
[2020-09-26] MEDS: VANCOMYCIN 1 G PREMIX 200 ML IV SCH ×2 (08:58→17:19)
[2020-09-26] MEDS ORDERED: MAGNESIUM 2 G PREMIX 50 ML IV ONE (15:00)
[2020-09-26 20:00] VITALS: BP 123/66
[2020-09-27] MEDS: FUROSEMIDE 40MG/4ML VIAL IVP SCH ×2 (06:03→17:25)
[2020-09-27] MEDS: GABAPENTIN 100MG CAPSULE PO SCH ×3 (06:03→22:11)
[2020-09-27] MEDS: ENOXAPARIN 40MG/0.4ML SYR SUBCUT SCH (06:05)
[2020-09-27 08:00] VITALS: BP 135/75
[2020-09-27 08:29] LABS: BASOPHILS % 0.6 % (0.0-2.0); EOSINOPHILS % 0.5 % (0.0-5.0); HEMATOCRIT. 28.6 % (36.0-48.0); HEMOGLOBIN. 9.7 g/dL (12.0-16.0); LYMPHOCYTES % 11.7 % (20.0-50.0); MEAN CORPUSCULAR HEMOGLOBIN 32.7 pg (28.0-32.0); MEAN CORPUSCULAR VOLUME 96.5 fL (81.0-99.0); MEAN PLATELET VOLUME 7.1 fl (7.4-10.4); MONOCYTES % 14.6 % (2.0-8.0); NEUTROPHILS % 72.6 % (40.0-76.0); PLATELET 479 x1000/uL (130-400); RED BLOOD CELL COUNT 2.97 mill/uL (4.2-5.4); RED CELL DISTRIBUTION WIDTH 15.2 % (11.6-14.6)
[2020-09-27] MEDS ORDERED: FENTANYL CITRATE/PF 50MCG/ML 2ML VIAL ONE (08:37)
[2020-09-27] MEDS ORDERED: HEPARIN 1,000 UNITS PREMIX 0 ML IV ONE (08:38)
[2020-09-27] MEDS ORDERED: LIDOCAINE HCL 1% 20ML VIAL (Pyxis) INJ ONE (08:38)
[2020-09-27] MEDS ORDERED: IODIXANOL 320MG/ML 100 ML BOTTLE IV ONE (08:38)
[2020-09-27] MEDS ORDERED: MIDAZOLAM HCL 2 MG/2 ML VIAL ONE (08:38)
[2020-09-27] MEDS ORDERED: IOHEXOL-300 100 ML BOTTLE ONE (08:39)
[2020-09-27 08:41] LABS: CHLORIDE 98 mEq/L (98-107)
[2020-09-27] MEDS: SPIRONOLACTONE 25MG TABLET PO SCH (09:00)
[2020-09-27] MEDS: VANCOMYCIN 1 G PREMIX 200 ML IV SCH ×3 (09:00→17:24)
[2020-09-27] MEDS: FAMOTIDINE 20MG TABLET PO SCH ×2 (09:00→22:11)
[2020-09-27] MEDS ORDERED: FENTANYL CITRATE/PF 50MCG/ML 5ML VIAL ONE (09:34)
[2020-09-27] MEDS ORDERED: MIDAZOLAM HCL 5 MG/5 ML VIAL ONE (09:34)
[2020-09-27] MEDS ORDERED: ENOXAPARIN 80MG/0.8ML SYR SUBCUT SCH (10:15)
[2020-09-27] MEDS ORDERED: *PATIENT'S OWN MEDICATION STORAGE XX SCH (16:45)
[2020-09-27 20:00] VITALS: BP 126/72
[2020-09-27] MEDS: ENOXAPARIN 120MG/0.8ML SYR SUBCUT SCH (22:10)
[2020-09-28] MEDS: VANCOMYCIN 1 G PREMIX 200 ML IV SCH ×4 (01:00→17:21)
[2020-09-28] MEDS: HYDROCODONE/ACETAMINOPHEN 5/325MG TABLET PO PRN ×3 (01:07→23:13)
[2020-09-28] MEDS: GABAPENTIN 100MG CAPSULE PO SCH ×3 (05:55→21:24)
[2020-09-28] MEDS: FUROSEMIDE 40MG/4ML VIAL IVP SCH (05:56)
[2020-09-28 08:00] VITALS: BP 119/68
[2020-09-28] MEDS ORDERED: LIDOCAINE HCL 1% 20ML VIAL (Pyxis) INJ ONE ×2 (08:14→09:45)
[2020-09-28] MEDS: SPIRONOLACTONE 25MG TABLET PO SCH (09:00)
[2020-09-28] MEDS ORDERED: SODIUM BICARBONATE 4% (2.4MEQ) 5ML VIAL IV ONE (09:45)
[2020-09-28 10:38] LABS: BASOPHILS % 0.6 % (0.0-2.0); EOSINOPHILS % 0.8 % (0.0-5.0); HEMATOCRIT. 31.1 % (36.0-48.0); HEMOGLOBIN. 10.5 g/dL (12.0-16.0); LYMPHOCYTES % 18.5 % (20.0-50.0); MEAN CORPUSCULAR HEMOGLOBIN 32.7 pg (28.0-32.0); MEAN CORPUSCULAR VOLUME 96.5 fL (81.0-99.0); MEAN PLATELET VOLUME 7.3 fl (7.4-10.4); MONOCYTES % 13.8 % (2.0-8.0); NEUTROPHILS % 66.3 % (40.0-76.0); PLATELET 546 x1000/uL (130-400); RED BLOOD CELL COUNT 3.22 mill/uL (4.2-5.4); RED CELL DISTRIBUTION WIDTH 14.8 % (11.6-14.6)
[2020-09-28 10:42] LABS: CHLORIDE 96 mEq/L (98-107)
[2020-09-28] MEDS: FAMOTIDINE 20MG TABLET PO SCH ×2 (12:01→21:23)
[2020-09-28] MEDS: ENOXAPARIN 120MG/0.8ML SYR SUBCUT SCH ×2 (12:02→21:25)
[2020-09-28] MEDS ORDERED: IOHEXOL-350 100 ML BOTTLE ONE (13:44)
[2020-09-28] MEDS: FUROSEMIDE 40MG TABLET PO SCH (17:21)
[2020-09-28 20:00] VITALS: BP 125/61
[2020-09-29] VITALS: BP 107/57
[2020-09-29] MEDS: VANCOMYCIN 1 G PREMIX 200 ML IV SCH ×3 (00:47→16:52)
[2020-09-29 04:00] VITALS: BP 115/60
[2020-09-29] MEDS: FUROSEMIDE 40MG TABLET PO SCH ×2 (05:42→17:41)
[2020-09-29] MEDS: GABAPENTIN 100MG CAPSULE PO SCH ×3 (05:42→21:00)
[2020-09-29] MEDS: ACETAMINOPHEN 325MG TABLET PO PRN (05:43)
[2020-09-29 08:00] VITALS: BP 125/65
[2020-09-29 08:45] LABS: HEMATOCRIT. 28.4 % (36.0-48.0); HEMOGLOBIN. 9.5 g/dL (12.0-16.0); MEAN CORPUSCULAR HEMOGLOBIN 32.4 pg (28.0-32.0); MEAN CORPUSCULAR VOLUME 96.6 fL (81.0-99.0); MEAN PLATELET VOLUME 6.9 fl (7.4-10.4); PLATELET 534 x1000/uL (130-400); RED BLOOD CELL COUNT 2.93 mill/uL (4.2-5.4); RED CELL DISTRIBUTION WIDTH 14.9 % (11.6-14.6)
[2020-09-29] MEDS: SPIRONOLACTONE 25MG TABLET PO SCH (09:15)
[2020-09-29] MEDS: FAMOTIDINE 20MG TABLET PO SCH ×2 (09:16→20:40)
[2020-09-29] MEDS: ENOXAPARIN 120MG/0.8ML SYR SUBCUT SCH ×2 (09:16→20:42)
[2020-09-29 09:33] LABS: CHLORIDE 96 mEq/L (98-107)
[2020-09-29 12:00] VITALS: BP 104/63
[2020-09-29 14:14] LABS: PLATELET ESTIMATE INCREASED
[2020-09-29 16:00] VITALS: BP 141/83
[2020-09-29] MEDS ORDERED: IOHEXOL-350 100 ML BOTTLE ONE (17:13)
[2020-09-29 20:00] VITALS: BP 134/66
[2020-09-29] MEDS: HYDROCODONE/ACETAMINOPHEN 5/325MG TABLET PO PRN (20:41)
[2020-09-30] MEDS: VANCOMYCIN 1 G PREMIX 200 ML IV SCH ×3 (01:28→17:22)
[2020-09-30] MEDS: FUROSEMIDE 40MG TABLET PO SCH ×2 (05:39→17:22)
[2020-09-30] MEDS: GABAPENTIN 100MG CAPSULE PO SCH ×2 (05:39→13:55)
[2020-09-30 07:00] LABS: HEMATOCRIT. 28.4 % (36.0-48.0); HEMOGLOBIN. 9.8 g/dL (12.0-16.0); MEAN CORPUSCULAR HEMOGLOBIN 33.5 pg (28.0-32.0); MEAN CORPUSCULAR VOLUME 96.7 fL (81.0-99.0); MEAN PLATELET VOLUME 6.8 fl (7.4-10.4); PLATELET 543 x1000/uL (130-400); RED BLOOD CELL COUNT 2.94 mill/uL (4.2-5.4); RED CELL DISTRIBUTION WIDTH 14.9 % (11.6-14.6)
[2020-09-30 07:05] LABS: CHLORIDE 97 mEq/L (98-107)
[2020-09-30 08:00] VITALS: BP 123/66
[2020-09-30] MEDS: FAMOTIDINE 20MG TABLET PO SCH ×2 (09:31→20:28)
[2020-09-30] MEDS: ENOXAPARIN 120MG/0.8ML SYR SUBCUT SCH ×2 (09:31→20:29)
[2020-09-30] MEDS: SPIRONOLACTONE 25MG TABLET PO SCH (09:32)
[2020-09-30] MEDS: DOCUSATE SODIUM 100MG CAPSULE PO SCH ×2 (09:37→17:22)
[2020-09-30 12:00] VITALS: BP 115/60
[2020-09-30 16:00] VITALS: BP 108/60
[2020-09-30 20:00] VITALS: BP 121/71
[2020-09-30] MEDS: HYDROCODONE/ACETAMINOPHEN 5/325MG TABLET PO PRN (20:28)
[2020-09-30 21:51] LABS: PLATELET ESTIMATE INCREASED
[2020-10-01] VITALS: BP 104/63
[2020-10-01] MEDS: GABAPENTIN 100MG CAPSULE PO SCH ×4 (00:05→23:17)
[2020-10-01] MEDS: VANCOMYCIN 1 G PREMIX 200 ML IV SCH (00:05)
[2020-10-01] MEDS: FUROSEMIDE 40MG TABLET PO SCH ×2 (05:29→17:25)
[2020-10-01 06:25] LABS: CHLORIDE 99 mEq/L (98-107)
[2020-10-01 07:10] LABS: HEMATOCRIT. 27.9 % (36.0-48.0); HEMOGLOBIN. 9.8 g/dL (12.0-16.0); MEAN CORPUSCULAR HEMOGLOBIN 33.5 pg (28.0-32.0); MEAN CORPUSCULAR VOLUME 95.8 fL (81.0-99.0); PLATELET 530 x1000/uL (130-400); RED BLOOD CELL COUNT 2.92 mill/uL (4.2-5.4)
[2020-10-01 08:00] VITALS: BP 124/73
[2020-10-01] MEDS: SPIRONOLACTONE 25MG TABLET PO SCH (09:37)
[2020-10-01] MEDS: DOCUSATE SODIUM 100MG CAPSULE PO SCH ×2 (09:38→17:25)
[2020-10-01] MEDS: ENOXAPARIN 120MG/0.8ML SYR SUBCUT SCH ×2 (09:38→21:19)
[2020-10-01] MEDS: FAMOTIDINE 20MG TABLET PO SCH ×2 (11:30→21:17)
[2020-10-01 12:00] VITALS: BP 109/65
[2020-10-01] MEDS: HYDROCODONE/ACETAMINOPHEN 5/325MG TABLET PO PRN ×2 (14:21→23:22)
[2020-10-01 16:00] VITALS: BP 117/71
[2020-10-01 16:18] LABS: PLATELET ESTIMATE INCREASED
[2020-10-01 20:00] VITALS: BP 126/63
[2020-10-02] VITALS: BP 120/55
[2020-10-02 04:00] VITALS: BP 110/51
[2020-10-02 04:51] LABS: HEMOGLOBIN. 9.9 g/dL (12.0-16.0); MEAN CORPUSCULAR VOLUME 96.3 fL (81.0-99.0); MEAN PLATELET VOLUME 6.6 fl (7.4-10.4); PLATELET 565 x1000/uL (130-400); RED BLOOD CELL COUNT 3.01 mill/uL (4.2-5.4); RED CELL DISTRIBUTION WIDTH 14.8 % (11.6-14.6)
[2020-10-02] MEDS: GABAPENTIN 100MG CAPSULE PO SCH ×3 (06:13→22:01)
[2020-10-02] MEDS: FUROSEMIDE 40MG TABLET PO SCH ×2 (06:14→17:40)
[2020-10-02 06:29] LABS: CHLORIDE 98 mEq/L (98-107)
[2020-10-02] MEDS ORDERED: LIDOCAINE HCL 1% 20ML VIAL (Pyxis) INJ ONE (07:27)
[2020-10-02] MEDS ORDERED: IODIXANOL 320MG/ML 100 ML BOTTLE IV ONE (07:28)
[2020-10-02] MEDS ORDERED: IOHEXOL-300 100 ML BOTTLE ONE (07:28)
[2020-10-02] MEDS ORDERED: MIDAZOLAM HCL 2 MG/2 ML VIAL ONE ×3 (08:22→08:56)
[2020-10-02] MEDS ORDERED: ROCURONIUM BROMIDE 10MG/ML VIAL 5ML IV ONE (08:22)
[2020-10-02] MEDS ORDERED: PROPOFOL 200MG/20ML VIAL IV ONE (08:22)
[2020-10-02] MEDS ORDERED: FENTANYL CITRATE/PF 50MCG/ML 2ML VIAL ONE (08:22)
[2020-10-02] MEDS ORDERED: METOCLOPRAMIDE HCL 10MG/2ML VIAL ONE (08:22)
[2020-10-02] MEDS ORDERED: ONDANSETRON HCL 4MG/2ML INJ ONE (08:22)
[2020-10-02] MEDS ORDERED: PHENYLEPHRINE HCL 10 MG/ML 1ML (IV VIAL) IV ONE (08:23)
[2020-10-02] MEDS ORDERED: SUCCINYLCHOLINE CHLORIDE 200MG/10ML IV ONE (08:23)
[2020-10-02] MEDS ORDERED: SODIUM CHLORIDE 0.9% 10ML VIAL ONE (08:23)
[2020-10-02] MEDS ORDERED: EPHEDRINE SULFATE 50MG/ML VIAL ONE (08:23)
[2020-10-02] MEDS ORDERED: GLYCOPYRROLATE 0.2 MG/ML 2ML VIAL ONE (08:23)
[2020-10-02] MEDS ORDERED: NEOSTIGMINE METHYLSULFATE 1MG/ML 10 ML VIAL ONE (08:23)
[2020-10-02] MEDS ORDERED: PROPOFOL 10MG/ML 100ML 100 ML IV ONE (08:36)
[2020-10-02] MEDS: ENOXAPARIN 120MG/0.8ML SYR SUBCUT SCH ×2 (09:00→21:57)
[2020-10-02] MEDS: FAMOTIDINE 20MG TABLET PO SCH ×2 (09:00→22:00)
[2020-10-02] MEDS: SPIRONOLACTONE 25MG TABLET PO SCH (09:00)
[2020-10-02] MEDS: DOCUSATE SODIUM 100MG CAPSULE PO SCH ×2 (09:00→17:40)
[2020-10-02] MEDS ORDERED: HEPARIN 10,000 UNITS/ML VIAL ONE (09:33)
[2020-10-02] MEDS ORDERED: SODIUM CHLORIDE 0.9% 1,000 ML IV ONE (11:00)
[2020-10-02] MEDS ORDERED: ONDANSETRON HCL 4MG/2ML INJ IV PRN (11:00)
[2020-10-02] MEDS ORDERED: MORPHINE SULFATE 2 MG/ML CPJ (NOT FOR IM USE) IV PRN (11:00)
[2020-10-02] MEDS: HYDROMORPHONE HCL/PF 2MG/ML CPJ IV PRN ×2 (11:33→11:49)
[2020-10-02 13:00] VITALS: BP 159/78
[2020-10-02 16:00] VITALS: BP 167/85
[2020-10-02] MEDS: HYDROCODONE/ACETAMINOPHEN 5/325MG TABLET PO PRN (17:40)
[2020-10-02 17:58] LABS: PLATELET ESTIMATE INCREASED
[2020-10-02 20:00] VITALS: BP 99/60
[2020-10-03] VITALS: BP 101/55
[2020-10-03 04:00] VITALS: BP 103/49
[2020-10-03] MEDS: GABAPENTIN 100MG CAPSULE PO SCH ×3 (06:30→21:45)
[2020-10-03] MEDS: FUROSEMIDE 40MG TABLET PO SCH ×2 (06:30→18:03)
[2020-10-03 08:00] VITALS: BP 119/58
[2020-10-03] MEDS: FAMOTIDINE 20MG TABLET PO SCH ×2 (09:36→21:45)
[2020-10-03] MEDS: ENOXAPARIN 120MG/0.8ML SYR SUBCUT SCH ×2 (09:36→21:45)
[2020-10-03] MEDS: DOCUSATE SODIUM 100MG CAPSULE PO SCH ×2 (09:36→18:03)
[2020-10-03] MEDS: SPIRONOLACTONE 25MG TABLET PO SCH (09:36)
[2020-10-03 12:00] VITALS: BP 94/59
[2020-10-03] MEDS ORDERED: LOV40 SQ (13:19)
[2020-10-03] MEDS ORDERED: SPIR25TA PO (13:19)
[2020-10-03] MEDS ORDERED: FAMO20TA8 PO (13:19)
[2020-10-03] MEDS ORDERED: FURO40TA5 PO (13:19)
[2020-10-03 15:44] LABS: CHLORIDE 98 mEq/L (98-107)
[2020-10-03 16:00] VITALS: BP 102/62
[2020-10-03] MEDS: HYDROCODONE/ACETAMINOPHEN 5/325MG TABLET PO PRN (20:43)
[2020-10-03] MEDS ORDERED: VANCOMYCIN 1500MG in DEXTROSE 5% WATER 250ML IV NR (23:00)
[2020-10-04] MEDS: FUROSEMIDE 40MG TABLET PO SCH ×2 (06:07→17:26)
[2020-10-04] MEDS: GABAPENTIN 100MG CAPSULE PO SCH ×3 (06:07→22:20)
[2020-10-04 08:00] VITALS: BP_SYST 112; BP_SYST 118; BP_DIAS 48; BP_DIAS 70
[2020-10-04] MEDS: ENOXAPARIN 120MG/0.8ML SYR SUBCUT SCH ×2 (09:00→22:20)
[2020-10-04] MEDS: FAMOTIDINE 20MG TABLET PO SCH ×2 (09:00→22:20)
[2020-10-04] MEDS: DOCUSATE SODIUM 100MG CAPSULE PO SCH ×2 (10:16→17:26)
[2020-10-04] MEDS: SPIRONOLACTONE 25MG TABLET PO SCH (10:16)
[2020-10-04] MEDS: HYDROCODONE/ACETAMINOPHEN 5/325MG TABLET PO PRN (10:57)
[2020-10-04 12:00] VITALS: BP 112/48
[2020-10-04 15:11] LABS: CHLORIDE 98 mEq/L (98-107)
[2020-10-04 20:00] VITALS: BP 114/58
[2020-10-04] MEDS ORDERED: HYDROCODONE/ACETAMINOPHEN 5/325MG TABLET PO PRN (23:45)
[2020-10-05] VITALS: BP 110/59
[2020-10-05 04:00] VITALS: BP 95/58
[2020-10-05] MEDS: GABAPENTIN 100MG CAPSULE PO SCH ×2 (05:39→13:45)
[2020-10-05] MEDS: FUROSEMIDE 40MG TABLET PO SCH ×3 (05:39→18:00)
[2020-10-05 07:34] LABS: CHLORIDE 100 mEq/L (98-107)
[2020-10-05] MEDS: DOCUSATE SODIUM 100MG CAPSULE PO SCH ×2 (09:17→17:00)
[2020-10-05] MEDS: FAMOTIDINE 20MG TABLET PO SCH (09:17)
[2020-10-05] MEDS: ENOXAPARIN 120MG/0.8ML SYR SUBCUT SCH (09:18)
[2020-10-05] MEDS: SPIRONOLACTONE 25MG TABLET PO SCH (09:18)
[2020-10-05] MEDS ORDERED: HYDROCODONE/ACETAMINOPHEN 5/325MG TABLET PO PRN (11:15)
[2020-10-05 15:07] VITALS: BP 129/84
[2020-10-05 16:00] VITALS: BP 123/62
== END 2020-10-05 18:34 | disposition home health service (06) | DRG 853 ==
LOC: ER 10:23 → 6EST 15:06 → EDBEDREQ 15:13 → EDBEDREQSVC 18:19 → ENRESERV 09-25 01:21
PROVIDERS: ADMIT Internal Medicine; ATTEND Internal Medicine
PROC: 02HV33Z Insertion of Infusion Device into Superior Vena Cava, Percutaneous Approach (ICD-10-PCS; principal; 2020-09-28)
PROC: B5181ZA Fluoroscopy of Superior Vena Cava using Low Osmolar Contrast, Guidance (ICD-10-PCS; 2020-09-28)
PROC: B548ZZA Ultrasonography of Superior Vena Cava, Guidance (ICD-10-PCS; 2020-09-28)
PROC: 06CM0ZZ Extirpation of Matter from Right Femoral Vein, Open Approach (ICD-10-PCS; 2020-10-02)
PROC: 06C Lower Veins, Extirpation (ICD-10-PCS; 2020-10-02)
DX: A41.9 Sepsis, unspecified organism (principal); I50.33 Acute on chronic diastolic (congestive) heart failure; S73.001A Unspecified subluxation of right hip, initial encounter; L03.115 Cellulitis of right lower limb; I82.411 Acute embolism and thrombosis of right femoral vein; D68.9 Coagulation defect, unspecified; Z68.41 Body mass index [BMI] 40.0-44.9, adult; E78.5 Hyperlipidemia, unspecified; D64.9 Anemia, unspecified; K21.9 Gastro-esophageal reflux disease without esophagitis; I11.0 Hypertensive heart disease with heart failure; E66.01 Morbid (severe) obesity due to excess calories; D72.810 Lymphocytopenia; D72.821 Monocytosis (symptomatic); E11.51 Type 2 diabetes mellitus with diabetic peripheral angiopathy without gangrene; M48.00 Spinal stenosis, site unspecified; D72.829 Elevated white blood cell count, unspecified; I27.21 Secondary pulmonary arterial hypertension; I25.10 Atherosclerotic heart disease of native coronary artery without angina pectoris; X58.XXXA Exposure to other specified factors, initial encounter; M24.452 Recurrent dislocation, left hip; Z79.01 Long term (current) use of anticoagulants; Z79.899 Other long term (current) drug therapy; Z83.3 Family history of diabetes mellitus; Z86.718 Personal history of other venous thrombosis and embolism; Z79.84 Long term (current) use of oral hypoglycemic drugs; Y93.89 Activity, other specified; Y92.89 Other specified places as the place of occurrence of the external cause; Y99.8 Other external cause status
CPT/HCPCS: 36415; 36573; 37187; 71045; 71275; 74174; 75635; 75820; 76937; 80048; 80053; 80202; 82607; 82728; 82746; 82962; 83540; 83550; 83605; 83735; 83880; 84145; 84484; 85025; 85347; 87426; 93005; 93923; 93970; 97162; 97166; 97530; 99291; A6261; C1725; C1760; C1769; C1893; J0330; J1170; J1644; J1650; J1940; J1956; J2250; J2270; J2370; J2405; J2704; J2710; J2765; J3010; J3370; J3475; J3490; J7040; J7060; Q9967

== ENCOUNTER 2020-11-15 16:21 | Inpatient (IN) | payer MEDICARE, MEDICAID ==
[~2020-11-15] VITALS: Ht 167.6 cm; Wt 103.9 kg
[~2020-11-15 16:21] MED LIST changes: +ASCO100T12 MT; +CHOL400T31; +FAMO20TA8 PO; +FURO40TA5 PO; +LOV40 SQ; -PANT40TA51 PO; +SPIR25TA PO
[2020-11-15 17:23] LABS: BASOPHILS % 0.6 % (0.0-2.0); EOSINOPHILS % 3.7 % (0.0-5.0); HEMATOCRIT. 32.9 % (36.0-48.0); HEMOGLOBIN. 10.8 g/dL (12.0-16.0); LYMPHOCYTES % 27.2 % (20.0-50.0); MEAN CORPUSCULAR HEMOGLOBIN 32.1 pg (28.0-32.0); MEAN CORPUSCULAR VOLUME 97.8 fL (81.0-99.0); MEAN PLATELET VOLUME 6.5 fl (7.4-10.4); MONOCYTES % 11.5 % (2.0-8.0); PLATELET 346 x1000/uL (130-400); RED BLOOD CELL COUNT 3.37 mill/uL (4.2-5.4); RED CELL DISTRIBUTION WIDTH 15.6 % (11.6-14.6)
[2020-11-15 17:29] LABS: CHLORIDE 101 mEq/L (98-107)
[2020-11-15] MEDS ORDERED: MEROPENEM 1,000 MG in SODIUM CHLORIDE 0.9% 100 ML IV ONE (17:30)
[2020-11-15] MEDS ORDERED: VANCOMYCIN 1 G PREMIX 200 ML IV ONE (17:30)
[2020-11-15 17:32] LABS: INR 1.1; PROTHROMBIN TIME 11.8 sec (9.6-11.0)
[2020-11-15] MEDS ORDERED: DIPHENHYDRAMINE 50MG/ML VIAL IV ONE (18:30)
[2020-11-15] MEDS ORDERED: CLINDAMYCIN 600 MG in DEXTROSE 5% WATER 50 ML IV ONE (18:30)
[2020-11-15] MEDS ORDERED: MAGNESIUM/ALUMINUM HYDROXIDE/SIMETHICONE 30ML UDC PO PRN (21:15)
[2020-11-15] MEDS ORDERED: ACETAMINOPHEN 325MG TABLET PO PRN (21:15)
[2020-11-15] MEDS ORDERED: LORAZEPAM 2MG/ML CPJ IV PRN (21:15)
[2020-11-15] MEDS ORDERED: CLONIDINE 0.1MG TABLET PO PRN (21:15)
[2020-11-15] MEDS ORDERED: GUAIFENESIN 200MG/10ML SUGAR FREE UDC PO PRN (21:15)
[2020-11-15] MEDS ORDERED: ONDANSETRON HCL 4MG/2ML INJ IV PRN (21:15)
[2020-11-15] MEDS ORDERED: ENOXAPARIN 40MG/0.4ML SYR SUBCUT SCH (22:00)
[2020-11-15] MEDS: METHYLPREDNISOLONE SOD SUCC 125 MG/2 ML VIAL IV SCH (22:00)
[2020-11-16 05:08] LABS: CLARITY URINE CLEAR (CLEAR); COLOR URINE YELLOW (YELLOW); KETONES URINE NEGATIVE (NEGATIVE); LEUKOCYTE ESTERASE URINE 1+ (NEGATIVE); NITRITE URINE NEGATIVE (NEGATIVE); OCCULT BLOOD URINE NEGATIVE (NEGATIVE); PH URINE 5.5 (4.5-8.0); PROTEIN URINE NEGATIVE (NEGATIVE); SPECIFIC GRAVITY URINE 1.045 (1.005-1.030); UROBILINOGEN URINE 0.2 E.U./dL (0.2-1.0)
[2020-11-16 05:21] LABS: CHLORIDE 104 mEq/L (98-107)
[2020-11-16 05:23] LABS: HEMATOCRIT. 32.4 % (36.0-48.0); HEMOGLOBIN. 10.9 g/dL (12.0-16.0); MEAN CORPUSCULAR HEMOGLOBIN 31.7 pg (28.0-32.0); MEAN CORPUSCULAR VOLUME 94.8 fL (81.0-99.0); MEAN PLATELET VOLUME 6.4 fl (7.4-10.4); PLATELET 345 x1000/uL (130-400); RED BLOOD CELL COUNT 3.42 mill/uL (4.2-5.4); RED CELL DISTRIBUTION WIDTH 15.6 % (11.6-14.6)
[2020-11-16 05:30] LABS: LDL CHOLESTEROL 72 mg/dL (5-100)
[2020-11-16 05:33] LABS: HDL CHOLESTEROL 38 mg/dL (40-59)
[2020-11-16] MEDS: METHYLPREDNISOLONE SOD SUCC 125 MG/2 ML VIAL IV SCH (05:45)
[2020-11-16] MEDS ORDERED: CLINDAMYCIN 600 MG in DEXTROSE 5% WATER 50 ML IV SCH (06:00)
[2020-11-16] MEDS ORDERED: CLINDAMYCIN 600MG PREMIX 50 ML IV SCH (06:00)
[2020-11-16 08:00] VITALS: BP 119/67
[2020-11-16 09:00] VITALS: BP 119/69
[2020-11-16] MEDS: FUROSEMIDE 40MG/4ML VIAL IV SCH ×2 (09:00→16:35)
[2020-11-16 09:50] LABS: PLATELET ESTIMATE NORMAL
[2020-11-16 11:00] VITALS: BP 118/70
[2020-11-16] MEDS ORDERED: LIDOCAINE HCL 2% JELLY 5ML TOP NR (11:15)
[2020-11-16] MEDS ORDERED: LIDOCAINE HCL 1% 20ML VIAL (Pyxis) INJ INFIL NR (11:15)
[2020-11-16 12:00] VITALS: BP_SYST 117; BP_SYST 119; BP_DIAS 62; BP_DIAS 69
[2020-11-16] MEDS: APIXABAN 5 MG TABLET PO SCH ×2 (12:24→16:34)
[2020-11-16] MEDS ORDERED: DEXTROSE 50% WATER 50ML SYRINGE IV PRN (13:00)
[2020-11-16] MEDS: CLINDAMYCIN 600MG PREMIX 50 ML IV SCH ×2 (14:51→21:13)
[2020-11-16 16:00] VITALS: BP 119/69
[2020-11-16] MEDS: SODIUM HYPOCHLORITE 0.125% 473ML SOLUTION TOP SCH (16:35)
[2020-11-16] MEDS: INSULIN LISPRO 100 UNITS/ML SUBCUT SCH ×3 (17:00→20:18)
[2020-11-16] MEDS: BLOOD SUGAR DIAGNOSTIC STRIP TEST SCH ×2 (17:58→20:18)
[2020-11-16] MEDS ORDERED: GABA-290 PO (19:22)
[2020-11-16 20:00] VITALS: BP 125/63
[2020-11-17] VITALS: BP 124/70
[2020-11-17] MEDS ORDERED: *PATIENT'S OWN MEDICATION STORAGE XX SCH (00:45)
[2020-11-17] MEDS: HYDROCODONE/ACETAMINOPHEN 5/325MG TABLET PO PRN ×3 (00:56→14:12)
[2020-11-17 04:00] VITALS: BP 124/69
[2020-11-17] MEDS: CLINDAMYCIN 600MG PREMIX 50 ML IV SCH ×3 (06:13→22:46)
[2020-11-17] MEDS: BLOOD SUGAR DIAGNOSTIC STRIP TEST SCH ×4 (06:44→20:24)
[2020-11-17] MEDS: INSULIN LISPRO 100 UNITS/ML SUBCUT SCH ×4 (07:50→20:24)
[2020-11-17 08:00] VITALS: BP 128/70
[2020-11-17] MEDS ORDERED: LIDOCAINE HCL 1% 20ML VIAL (Pyxis) INJ INFIL SCH (09:00)
[2020-11-17] MEDS: FUROSEMIDE 40MG/4ML VIAL IV SCH ×2 (09:54→17:56)
[2020-11-17] MEDS: SODIUM HYPOCHLORITE 0.125% 473ML SOLUTION TOP SCH (09:54)
[2020-11-17] MEDS: APIXABAN 5 MG TABLET PO SCH ×2 (09:54→17:56)
[2020-11-17 12:00] VITALS: BP 132/74
[2020-11-17 16:00] VITALS: BP 126/59
[2020-11-17] MEDS: DOCUSATE SODIUM 100MG CAPSULE PO PRN (17:56)
[2020-11-17] MEDS ORDERED: MAGNESIUM HYDROXIDE 400MG/5ML 30ML UDC PO PRN (19:30)
[2020-11-17] MEDS: LACTULOSE 20G/30ML UDC PO PRN (19:43)
[2020-11-17 20:00] VITALS: BP 143/81
[2020-11-17] MEDS: GABAPENTIN 300MG CAPSULE PO SCH (22:46)
[2020-11-18] VITALS: BP 145/73
[2020-11-18 04:00] VITALS: BP 146/68
[2020-11-18] MEDS: CLINDAMYCIN 600MG PREMIX 50 ML IV SCH ×3 (05:44→21:07)
[2020-11-18] MEDS: BLOOD SUGAR DIAGNOSTIC STRIP TEST SCH ×3 (06:24→17:20)
[2020-11-18] MEDS ORDERED: MAGNESIUM 2 G PREMIX 50 ML IV ONE (06:30)
[2020-11-18] MEDS: INSULIN LISPRO 100 UNITS/ML SUBCUT SCH ×3 (07:50→17:50)
[2020-11-18 08:00] VITALS: BP 133/70
[2020-11-18] MEDS ORDERED: LIDOCAINE HCL 1% 20ML VIAL (Pyxis) INJ ONE (08:52)
[2020-11-18] MEDS: FUROSEMIDE 40MG/4ML VIAL IV SCH (09:00)
[2020-11-18] MEDS: APIXABAN 5 MG TABLET PO SCH ×2 (09:00→18:58)
[2020-11-18] MEDS: DOCUSATE SODIUM 100MG CAPSULE PO PRN (09:01)
[2020-11-18] MEDS: LACTULOSE 20G/30ML UDC PO PRN (09:01)
[2020-11-18] MEDS: SODIUM HYPOCHLORITE 0.125% 473ML SOLUTION TOP SCH (09:02)
[2020-11-18 12:35] VITALS: BP 147/80
[2020-11-18] MEDS: METOPROLOL TARTRATE 25MG TABLET PO SCH ×2 (13:22→21:06)
[2020-11-18] MEDS ORDERED: IOHEXOL-350 100 ML BOTTLE ONE (16:43)
[2020-11-18] MEDS: FUROSEMIDE 40MG TABLET PO SCH (18:58)
[2020-11-18 19:10] VITALS: BP 123/71
[2020-11-18 20:09] VITALS: BP 127/71
[2020-11-18] MEDS: GABAPENTIN 300MG CAPSULE PO SCH (21:07)
[2020-11-19 00:30] VITALS: BP 118/60
[2020-11-19 04:30] VITALS: BP 123/68
[2020-11-19] MEDS: FUROSEMIDE 40MG TABLET PO SCH ×2 (05:38→18:22)
[2020-11-19] MEDS: CLINDAMYCIN 600MG PREMIX 50 ML IV SCH ×3 (05:38→22:27)
[2020-11-19 07:54] VITALS: BP 118/57
[2020-11-19] MEDS: APIXABAN 5 MG TABLET PO SCH (08:38)
[2020-11-19] MEDS: METOPROLOL TARTRATE 25MG TABLET PO SCH ×2 (08:39→21:18)
[2020-11-19] MEDS: SODIUM HYPOCHLORITE 0.125% 473ML SOLUTION TOP SCH (08:44)
[2020-11-19 12:14] VITALS: BP 107/62
[2020-11-19] MEDS ORDERED: MAGNESIUM 2 G PREMIX 50 ML IV NR (12:30)
[2020-11-19] MEDS: AZTREONAM 2 GM in DEXT 5% WATER 100 ML IV SCH ×2 (14:59→21:18)
[2020-11-19 16:41] VITALS: BP 122/56
[2020-11-19 20:00] VITALS: BP 112/60
[2020-11-19] MEDS: GABAPENTIN 300MG CAPSULE PO SCH ×2 (21:00→21:18)
[2020-11-19 23:47] LABS: BASOPHILS % 0.4 % (0.0-2.0); EOSINOPHILS % 4.1 % (0.0-5.0); HEMATOCRIT. 33.4 % (36.0-48.0); HEMOGLOBIN. 11.3 g/dL (12.0-16.0); LYMPHOCYTES % 28.9 % (20.0-50.0); MEAN CORPUSCULAR HEMOGLOBIN 32.3 pg (28.0-32.0); MEAN CORPUSCULAR VOLUME 95.5 fL (81.0-99.0); MEAN PLATELET VOLUME 6.3 fl (7.4-10.4); MONOCYTES % 12.4 % (2.0-8.0); NEUTROPHILS % 54.2 % (40.0-76.0); PLATELET 380 x1000/uL (130-400); RED CELL DISTRIBUTION WIDTH 15.6 % (11.6-14.6)
[2020-11-20 00:14] VITALS: BP 102/58
[2020-11-20] MEDS: AZTREONAM 2 GM in DEXT 5% WATER 100 ML IV SCH ×4 (03:03→20:51)
[2020-11-20 04:19] VITALS: BP 104/50
[2020-11-20] MEDS: FUROSEMIDE 40MG TABLET PO SCH ×2 (05:20→17:34)
[2020-11-20] MEDS: CLINDAMYCIN 600MG PREMIX 50 ML IV SCH ×3 (05:20→22:01)
[2020-11-20] MEDS ORDERED: LIDOCAINE HCL 1% 20ML VIAL (Pyxis) INJ ONE (07:45)
[2020-11-20] MEDS ORDERED: BUPIVACAINE HCL/PF 0.5% (5MG/ML) 10ML ONE (07:46)
[2020-11-20] MEDS ORDERED: VANCOMYCIN HCL 1 GM/VIAL ONE (07:46)
[2020-11-20 08:00] VITALS: BP 123/75
[2020-11-20] MEDS ORDERED: ROPIVACAINE HCL 10MG/ML 20 ML VIAL EPI ONE (08:46)
[2020-11-20] MEDS ORDERED: MIDAZOLAM HCL 2 MG/2 ML VIAL ONE (08:48)
[2020-11-20] MEDS ORDERED: FENTANYL CITRATE/PF 50MCG/ML 2ML VIAL ONE (08:49)
[2020-11-20] MEDS ORDERED: DIPHENHYDRAMINE 50MG/ML VIAL ONE (08:54)
[2020-11-20] MEDS ORDERED: BACITRACIN 50,000 UNITS/VIAL ONE (08:56)
[2020-11-20] MEDS: METOPROLOL TARTRATE 25MG TABLET PO SCH ×2 (09:00→20:52)
[2020-11-20] MEDS: SODIUM HYPOCHLORITE 0.125% 473ML SOLUTION TOP SCH (09:00)
[2020-11-20 12:20] VITALS: BP 104/62
[2020-11-20] MEDS ORDERED: HYDRALAZINE 20MG/ML VIAL ONE (12:45)
[2020-11-20] MEDS ORDERED: PROPOFOL 200MG/20ML VIAL IV ONE (13:12)
[2020-11-20] MEDS: HYDROCODONE/ACETAMINOPHEN 5/325MG TABLET PO PRN ×2 (13:14→21:05)
[2020-11-20 16:20] VITALS: BP 106/59
[2020-11-20 20:00] VITALS: BP 103/61
[2020-11-20] MEDS: GABAPENTIN 300MG CAPSULE PO SCH (20:52)
[2020-11-20] MEDS ORDERED: HYDROCODONE/ACETAMINOPHEN 5/325MG TABLET PO PRN (23:00)
[2020-11-21] VITALS: BP 114/58
[2020-11-21] MEDS: AZTREONAM 2 GM in DEXT 5% WATER 100 ML IV SCH ×4 (03:22→21:26)
[2020-11-21 04:00] VITALS: BP 99/49
[2020-11-21] MEDS: CLINDAMYCIN 600MG PREMIX 50 ML IV SCH ×3 (06:27→21:26)
[2020-11-21] MEDS: FUROSEMIDE 40MG TABLET PO SCH ×2 (06:27→17:10)
[2020-11-21 08:00] VITALS: BP 95/60
[2020-11-21] MEDS: METOPROLOL TARTRATE 25MG TABLET PO SCH ×2 (09:00→21:00)
[2020-11-21] MEDS: SODIUM HYPOCHLORITE 0.125% 473ML SOLUTION TOP SCH (09:00)
[2020-11-21] MEDS ORDERED: LIDOCAINE HCL 1% 20ML VIAL (Pyxis) INJ INFIL NR (09:30)
[2020-11-21] MEDS ORDERED: LIDOCAINE HCL 2% JELLY 5ML TOP NR (09:30)
[2020-11-21 12:00] VITALS: BP 100/60
[2020-11-21 16:00] VITALS: BP 109/59
[2020-11-21] MEDS: APIXABAN 5 MG TABLET PO SCH (17:10)
[2020-11-21 20:00] VITALS: BP 99/61
[2020-11-21] MEDS: GABAPENTIN 300MG CAPSULE PO SCH (21:25)
[2020-11-22] VITALS: BP 93/64
[2020-11-22] MEDS: AZTREONAM 2 GM in DEXT 5% WATER 100 ML IV SCH ×4 (02:42→20:39)
[2020-11-22 04:00] VITALS: BP 96/50
[2020-11-22] MEDS: CLINDAMYCIN 600MG PREMIX 50 ML IV SCH ×3 (06:13→21:40)
[2020-11-22] MEDS: FUROSEMIDE 40MG TABLET PO SCH (06:13)
[2020-11-22 06:20] LABS: BASOPHILS % 0.4 % (0.0-2.0); EOSINOPHILS % 3.5 % (0.0-5.0); HEMATOCRIT. 28.3 % (36.0-48.0); HEMOGLOBIN. 9.6 g/dL (12.0-16.0); LYMPHOCYTES % 16.2 % (20.0-50.0); MEAN CORPUSCULAR HEMOGLOBIN 32.2 pg (28.0-32.0); MEAN CORPUSCULAR VOLUME 94.7 fL (81.0-99.0); MEAN PLATELET VOLUME 6.6 fl (7.4-10.4); MONOCYTES % 11.6 % (2.0-8.0); NEUTROPHILS % 68.3 % (40.0-76.0); PLATELET 334 x1000/uL (130-400); RED BLOOD CELL COUNT 2.99 mill/uL (4.2-5.4); RED CELL DISTRIBUTION WIDTH 15.8 % (11.6-14.6)
[2020-11-22 06:22] LABS: CHLORIDE 99 mEq/L (98-107)
[2020-11-22 08:00] VITALS: BP 95/61
[2020-11-22] MEDS: APIXABAN 5 MG TABLET PO SCH ×2 (08:22→17:29)
[2020-11-22] MEDS: METOPROLOL TARTRATE 25MG TABLET PO SCH ×2 (08:23→20:22)
[2020-11-22] MEDS: SODIUM HYPOCHLORITE 0.125% 473ML SOLUTION TOP SCH (08:24)
[2020-11-22] MEDS: SODIUM CHLORIDE 0.9% 1,000 ML IV SCH (11:55)
[2020-11-22 11:59] VITALS: BP 92/54
[2020-11-22] MEDS ORDERED: ALBU6.7H11 INH (13:07)
[2020-11-22] MEDS ORDERED: ATOR10TA69 MT (13:08)
[2020-11-22] MEDS ORDERED: APIX5TAB PO (13:09)
[2020-11-22] MEDS ORDERED: DICL100G31 TP (13:09)
[2020-11-22] MEDS ORDERED: FLUT1BLS3 INH (13:13)
[2020-11-22] MEDS ORDERED: MORPHINE SULFATE 2 MG/ML CPJ (NOT FOR IM USE) IV PRN (14:30)
[2020-11-22 15:33] VITALS: BP 103/69
[2020-11-22 20:32] VITALS: BP 97/57
[2020-11-22] MEDS: GABAPENTIN 300MG CAPSULE PO SCH (20:39)
[2020-11-23] VITALS (7 sets, daily range): BP systolic 93–114; BP diastolic 53–67
[2020-11-23] MEDS: SODIUM CHLORIDE 0.9% 1,000 ML IV SCH (00:20)
[2020-11-23] MEDS: AZTREONAM 2 GM in DEXT 5% WATER 100 ML IV SCH ×4 (03:33→23:06)
[2020-11-23] MEDS: CLINDAMYCIN 600MG PREMIX 50 ML IV SCH ×2 (06:03→15:18)
[2020-11-23 06:39] LABS: CHLORIDE 102 mEq/L (98-107)
[2020-11-23 06:43] LABS: BASOPHILS % 0.6 % (0.0-2.0); EOSINOPHILS % 4.1 % (0.0-5.0); HEMATOCRIT. 26.3 % (36.0-48.0); HEMOGLOBIN. 8.9 g/dL (12.0-16.0); LYMPHOCYTES % 18.9 % (20.0-50.0); MEAN CORPUSCULAR HEMOGLOBIN 32.4 pg (28.0-32.0); MEAN CORPUSCULAR VOLUME 95.7 fL (81.0-99.0); MEAN PLATELET VOLUME 6.8 fl (7.4-10.4); MONOCYTES % 14.1 % (2.0-8.0); NEUTROPHILS % 62.3 % (40.0-76.0); PLATELET 326 x1000/uL (130-400); RED BLOOD CELL COUNT 2.74 mill/uL (4.2-5.4); RED CELL DISTRIBUTION WIDTH 15.7 % (11.6-14.6)
[2020-11-23] MEDS: APIXABAN 5 MG TABLET PO SCH ×2 (09:01→18:11)
[2020-11-23] MEDS: SODIUM HYPOCHLORITE 0.125% 473ML SOLUTION TOP SCH (09:03)
[2020-11-23] MEDS: METOPROLOL TARTRATE 25MG TABLET PO SCH ×3 (09:03→23:05)
[2020-11-23 14:31] LABS: CREATINE KINASE 17 IU/L (26-192)
[2020-11-23] MEDS: GABAPENTIN 300MG CAPSULE PO SCH (23:05)
[2020-11-24] VITALS: BP 91/51
[2020-11-24] MEDS: CLINDAMYCIN 600MG PREMIX 50 ML IV SCH ×4 (00:50→22:48)
[2020-11-24 04:00] VITALS: BP 93/54
[2020-11-24] MEDS: AZTREONAM 2 GM in DEXT 5% WATER 100 ML IV SCH ×4 (04:11→20:58)
[2020-11-24] MEDS: SODIUM CHLORIDE 0.9% 1,000 ML IV SCH ×2 (04:11→16:10)
[2020-11-24] MEDS ORDERED: CLINDAMYCIN 600 MG in DEXTROSE 5% WATER 50 ML IV SCH (06:00)
[2020-11-24 08:14] VITALS: BP 103/60
[2020-11-24] MEDS: APIXABAN 5 MG TABLET PO SCH ×2 (08:26→16:07)
[2020-11-24] MEDS: METOPROLOL TARTRATE 25MG TABLET PO SCH ×2 (08:26→20:57)
[2020-11-24] MEDS: SODIUM HYPOCHLORITE 0.125% 473ML SOLUTION TOP SCH (09:00)
[2020-11-24] MEDS ORDERED: LIDOCAINE HCL 1% 20ML VIAL (Pyxis) INJ INFIL SCH (09:00)
[2020-11-24 12:35] VITALS: BP 99/52
[2020-11-24 16:45] VITALS: BP 102/56
[2020-11-24 20:00] VITALS: BP 103/54
[2020-11-24] MEDS: GABAPENTIN 300MG CAPSULE PO SCH (20:58)
[2020-11-25] VITALS: BP 105/50
[2020-11-25] MEDS: AZTREONAM 2 GM in DEXT 5% WATER 100 ML IV SCH ×4 (04:28→20:23)
[2020-11-25] MEDS: SODIUM CHLORIDE 0.9% 1,000 ML IV SCH ×2 (05:40→16:58)
[2020-11-25] MEDS: CLINDAMYCIN 600MG PREMIX 50 ML IV SCH ×3 (05:56→21:08)
[2020-11-25 06:00] VITALS: BP 101/49
[2020-11-25 08:00] VITALS: BP 98/57
[2020-11-25] MEDS: METOPROLOL TARTRATE 25MG TABLET PO SCH ×2 (08:52→20:23)
[2020-11-25] MEDS: APIXABAN 5 MG TABLET PO SCH ×2 (08:53→16:57)
[2020-11-25] MEDS: SODIUM HYPOCHLORITE 0.125% 473ML SOLUTION TOP SCH (08:54)
[2020-11-25 12:00] VITALS: BP 98/50
[2020-11-25 16:00] VITALS: BP 100/56
[2020-11-25 20:00] VITALS: BP 103/59
[2020-11-25] MEDS: GABAPENTIN 300MG CAPSULE PO SCH (20:25)
[2020-11-26] VITALS: BP 97/49
[2020-11-26] MEDS: AZTREONAM 2 GM in DEXT 5% WATER 100 ML IV SCH ×2 (03:00→09:00)
[2020-11-26 04:00] VITALS: BP 91/51
[2020-11-26] MEDS: CLINDAMYCIN 600MG PREMIX 50 ML IV SCH (05:23)
[2020-11-26 06:28] LABS: CHLORIDE 112 mEq/L (98-107)
[2020-11-26 06:43] LABS: EOSINOPHILS % 5.5 % (0.0-5.0); HEMATOCRIT. 23.3 % (36.0-48.0); HEMOGLOBIN. 7.9 g/dL (12.0-16.0); LYMPHOCYTES % 32.4 % (20.0-50.0); MEAN CORPUSCULAR HEMOGLOBIN 32.5 pg (28.0-32.0); MEAN CORPUSCULAR VOLUME 95.7 fL (81.0-99.0); MEAN PLATELET VOLUME 6.5 fl (7.4-10.4); MONOCYTES % 12.8 % (2.0-8.0); NEUTROPHILS % 48.3 % (40.0-76.0); PLATELET 352 x1000/uL (130-400); RED BLOOD CELL COUNT 2.43 mill/uL (4.2-5.4); RED CELL DISTRIBUTION WIDTH 15.7 % (11.6-14.6)
[2020-11-26 08:00] VITALS: BP 100/60
[2020-11-26] MEDS: SODIUM CHLORIDE 0.9% 1,000 ML IV SCH (08:20)
[2020-11-26] MEDS: METOPROLOL TARTRATE 25MG TABLET PO SCH (09:00)
[2020-11-26] MEDS: SODIUM HYPOCHLORITE 0.125% 473ML SOLUTION TOP SCH (09:31)
[2020-11-26] MEDS: APIXABAN 5 MG TABLET PO SCH (09:31)
[2020-11-26] MEDS ORDERED: POTASSIUM CHLORIDE 20MEQ TABLET SR PO NR (11:15)
[2020-11-26 11:33] VITALS: BP 100/60
== END 2020-11-26 11:46 | disposition home health service (06) | DRG 570 ==
LOC: ER 16:21 → EDBEDREQTM 17:31 → EDBEDREQSVC 17:31 → 6WST 20:06 → EDBEDREQTM 20:08 → EDBEDREQ 20:08 → ENRESERV 11-16 08:01
PROVIDERS: ADMIT Hospitalist; ATTEND Hospitalist
PROC: 0KBS0ZZ Excision of Right Lower Leg Muscle, Open Approach (ICD-10-PCS; 2020-11-16)
PROC: 05HY33Z Insertion of Infusion Device into Upper Vein, Percutaneous Approach (ICD-10-PCS; principal; 2020-11-18)
PROC: B54MZZA Ultrasonography of Right Upper Extremity Veins, Guidance (ICD-10-PCS; 2020-11-18)
PROC: 0J9Q0ZZ Drainage of Right Foot Subcutaneous Tissue and Fascia, Open Approach (ICD-10-PCS; 2020-11-20)
PROC: 0J9N0ZZ Drainage of Right Lower Leg Subcutaneous Tissue and Fascia, Open Approach (ICD-10-PCS; 2020-11-20)
PROC: 0J9N0ZZ Drainage of Right Lower Leg Subcutaneous Tissue and Fascia, Open Approach (ICD-10-PCS; 2020-11-20)
PROC: 0JBN0ZZ Excision of Right Lower Leg Subcutaneous Tissue and Fascia, Open Approach (ICD-10-PCS; 2020-11-20)
DX: L02.415 Cutaneous abscess of right lower limb (principal); I50.33 Acute on chronic diastolic (congestive) heart failure; N17.9 Acute kidney failure, unspecified; L97.919 Non-pressure chronic ulcer of unspecified part of right lower leg with unspecified severity; I82.511 Chronic embolism and thrombosis of right femoral vein; L03.115 Cellulitis of right lower limb; E11.51 Type 2 diabetes mellitus with diabetic peripheral angiopathy without gangrene; E66.01 Morbid (severe) obesity due to excess calories; I11.0 Hypertensive heart disease with heart failure; I87.001 Postthrombotic syndrome without complications of right lower extremity; M48.00 Spinal stenosis, site unspecified; E78.5 Hyperlipidemia, unspecified; G47.33 Obstructive sleep apnea (adult) (pediatric); K59.00 Constipation, unspecified; T50.2X5A Adverse effect of carbonic-anhydrase inhibitors, benzothiadiazides and other diuretics, initial encounter; Z20.822 Contact with and (suspected) exposure to COVID-19; Z82.49 Family history of ischemic heart disease and other diseases of the circulatory system; Z83.3 Family history of diabetes mellitus; Z99.3 Dependence on wheelchair; Y92.89 Other specified places as the place of occurrence of the external cause; Z68.37 Body mass index [BMI] 37.0-37.9, adult; Z79.899 Other long term (current) drug therapy; Z68.38 Body mass index [BMI] 38.0-38.9, adult; Z88.0 Allergy status to penicillin; Z88.8 Allergy status to other drugs, medicaments and biological substances; Z88.1 Allergy status to other antibiotic agents; Z88.2 Allergy status to sulfonamides
CPT/HCPCS: 36415; 71045; 73590; 73702; 73718; 74018; 74178; 75635; 76770; 76937; 80048; 80053; 80061; 81003; 82550; 82962; 83605; 83735; 83880; 84145; 84484; 85025; 85651; 86140; 86850; 86900; 87070; 87075; 87077; 87106; 87186; 87426; 93005; 93306; 93923; 93971; 99291; C1725; J0360; J1200; J1650; J1940; J2185; J2250; J2270; J2704; J2795; J2930; J3010; J3370; J3475; J3490; J7030; J7040; J7050; J7060; Q9967; A4315

== ENCOUNTER 2020-12-28 10:28 | Inpatient (IN) | payer MEDICARE, MEDICAID ==
[~2020-12-28] VITALS: Ht 167.6 cm; Wt 107.5 kg
[~2020-12-28 10:28] MED LIST changes: +ALBU6.7H11 INH; +APIX5TAB PO; -ASCO100T12 MT; +ATOR10TA69 MT; -CHOL400T31; +DICL100G31 TP; -FAMO20TA8 PO; +FLUT1BLS3 INH; -FURO40TA5 PO; +GABA-290 PO; -GABA-529 PO; -LOV40 SQ
[2020-12-28] MEDS ORDERED: MORPHINE SULFATE 2 MG/ML CPJ (NOT FOR IM USE) IV ONE (11:00)
[2020-12-28] MEDS ORDERED: SODIUM CHLORIDE 0.9% 1,000 ML IV ONE (11:00)
[2020-12-28] MEDS ORDERED: VISCOUS LIDOCAINE 2% 15 ML UDC MM ONE (11:15)
[2020-12-28] MEDS ORDERED: MAGNESIUM/ALUMINUM HYDROXIDE/SIMETHICONE 30ML UDC PO ONE (11:15)
[2020-12-28] MEDS ORDERED: ONDANSETRON HCL 4MG/2ML INJ IM ONE (11:15)
[2020-12-28 11:23] LABS: BASOPHILS % 0.2 % (0.0-2.0); EOSINOPHILS % 0.1 % (0.0-5.0); HEMATOCRIT. 37.5 % (36.0-48.0); HEMOGLOBIN. 12.5 g/dL (12.0-16.0); LYMPHOCYTES % 8.4 % (20.0-50.0); MEAN CORPUSCULAR HEMOGLOBIN 32.4 pg (28.0-32.0); MEAN CORPUSCULAR VOLUME 97.1 fL (81.0-99.0); MEAN PLATELET VOLUME 6.7 fl (7.4-10.4); NEUTROPHILS % 86.3 % (40.0-76.0); PLATELET 389 x1000/uL (130-400); RED BLOOD CELL COUNT 3.86 mill/uL (4.2-5.4); RED CELL DISTRIBUTION WIDTH 14.9 % (11.6-14.6)
[2020-12-28 11:32] LABS: INR 1.2; PROTHROMBIN TIME 12.3 sec (9.6-11.0)
[2020-12-28 11:36] LABS: CHLORIDE 105 mEq/L (98-107)
[2020-12-28] MEDS ORDERED: IOHEXOL-300 100 ML BOTTLE ONE (15:26)
[2020-12-28] MEDS ORDERED: FURO40TA5 PO (19:14)
[2020-12-28] MEDS ORDERED: FAMO20TA8 PO (19:14)
[2020-12-28 20:00] VITALS: BP_SYST 102; BP_SYST 110; BP_DIAS 59; BP_DIAS 62
[2020-12-28] MEDS ORDERED: GUAIFENESIN 200MG/10ML SUGAR FREE UDC PO PRN (20:30)
[2020-12-28] MEDS ORDERED: DEXT 5%/0.45% NACL 1000ML 1,000 ML IV SCH (20:30)
[2020-12-28] MEDS ORDERED: DOCUSATE SODIUM 100MG CAPSULE PO PRN (20:30)
[2020-12-28] MEDS ORDERED: IPRATROPIUM/ALBUTEROL 0.5-3(2.5)MG/3ML NEB HHN PRN (20:30)
[2020-12-28] MEDS ORDERED: HYDRALAZINE 20MG/ML VIAL IV PRN (20:30)
[2020-12-28] MEDS ORDERED: ONDANSETRON HCL 4MG/2ML INJ IV PRN (20:30)
[2020-12-28] MEDS ORDERED: LORAZEPAM 2MG/ML CPJ IV PRN (20:30)
[2020-12-28] MEDS ORDERED: CLONIDINE 0.1MG TABLET PO PRN (20:30)
[2020-12-28] MEDS ORDERED: *PATIENT'S OWN MEDICATION STORAGE XX SCH (20:30)
[2020-12-28] MEDS ORDERED: MAGNESIUM/ALUMINUM HYDROXIDE/SIMETHICONE 30ML UDC PO PRN (20:30)
[2020-12-28] MEDS ORDERED: HYDROCODONE/ACETAMINOPHEN 5/325MG TABLET PO PRN (20:30)
[2020-12-28] MEDS ORDERED: ACETAMINOPHEN 325MG TABLET PO PRN (20:30)
[2020-12-28] MEDS ORDERED: DIPHENHYDRAMINE 50MG/ML VIAL IV PRN (20:30)
[2020-12-28] MEDS: BLOOD SUGAR DIAGNOSTIC STRIP TEST SCH (21:00)
[2020-12-28] MEDS: INSULIN LISPRO 100 UNITS/ML SUBCUT SCH (21:00)
[2020-12-28] MEDS: ENOXAPARIN 40MG/0.4ML SYR SUBCUT SCH (21:56)
[2020-12-28] MEDS: SODIUM CHLORIDE 0.9% INJ 3ML FLUSH IVF SCH (22:00)
[2020-12-28] MEDS: DEXTROSE 50% WATER 50ML SYRINGE IV PRN (22:20)
[2020-12-29] VITALS: BP 142/82
[2020-12-29 04:00] VITALS: BP 119/77
[2020-12-29] MEDS: SODIUM CHLORIDE 0.9% INJ 3ML FLUSH IVF SCH ×3 (06:00→21:12)
[2020-12-29 06:45] LABS: BASOPHILS % 0.4 % (0.0-2.0); HEMATOCRIT. 35.5 % (36.0-48.0); HEMOGLOBIN. 11.6 g/dL (12.0-16.0); MEAN CORPUSCULAR VOLUME 97.8 fL (81.0-99.0); MEAN PLATELET VOLUME 6.7 fl (7.4-10.4); MONOCYTES % 9.6 % (2.0-8.0); PLATELET 356 x1000/uL (130-400); RED BLOOD CELL COUNT 3.63 mill/uL (4.2-5.4); RED CELL DISTRIBUTION WIDTH 15.4 % (11.6-14.6)
[2020-12-29 06:46] LABS: CHLORIDE 107 mEq/L (98-107)
[2020-12-29] MEDS: INSULIN LISPRO 100 UNITS/ML SUBCUT SCH ×4 (07:07→21:00)
[2020-12-29] MEDS: BLOOD SUGAR DIAGNOSTIC STRIP TEST SCH ×4 (07:07→21:11)
[2020-12-29 08:00] VITALS: BP 102/58
[2020-12-29] MEDS: DEXTROSE 50% WATER 50ML SYRINGE IV PRN ×3 (08:20→21:12)
[2020-12-29] MEDS: DEXT 10% WATER 1,000 ML IV SCH ×2 (11:33→21:53)
[2020-12-29] MEDS ORDERED: LIDOCAINE HCL 1% 20ML VIAL (Pyxis) INJ ONE (14:18)
[2020-12-29] MEDS ORDERED: DIPHENOXYLATE/ATROPINE 2.5/0.025MG TABLET PO PRN (16:00)
[2020-12-29 20:00] VITALS: BP 103/62
[2020-12-29] MEDS: ENOXAPARIN 40MG/0.4ML SYR SUBCUT SCH (21:11)
[2020-12-30] VITALS: BP 95/49
[2020-12-30 04:00] VITALS: BP 101/49
[2020-12-30] MEDS: SODIUM CHLORIDE 0.9% INJ 3ML FLUSH IVF SCH ×3 (05:07→20:40)
[2020-12-30] MEDS: INSULIN LISPRO 100 UNITS/ML SUBCUT SCH ×4 (07:15→20:39)
[2020-12-30] MEDS: BLOOD SUGAR DIAGNOSTIC STRIP TEST SCH ×4 (07:16→20:39)
[2020-12-30 08:00] VITALS: BP 101/48
[2020-12-30 12:00] VITALS: BP 95/63
[2020-12-30] MEDS: DEXT 10% WATER 1,000 ML IV SCH (13:01)
[2020-12-30 15:46] LABS: BASOPHILS % 0.3 % (0.0-2.0); EOSINOPHILS % 4.3 % (0.0-5.0); HEMATOCRIT. 31.5 % (36.0-48.0); HEMOGLOBIN. 10.7 g/dL (12.0-16.0); LYMPHOCYTES % 25.1 % (20.0-50.0); MEAN CORPUSCULAR HEMOGLOBIN 32.9 pg (28.0-32.0); MEAN CORPUSCULAR VOLUME 96.5 fL (81.0-99.0); MEAN PLATELET VOLUME 6.5 fl (7.4-10.4); MONOCYTES % 11.7 % (2.0-8.0); NEUTROPHILS % 58.6 % (40.0-76.0); PLATELET 301 x1000/uL (130-400); RED BLOOD CELL COUNT 3.26 mill/uL (4.2-5.4); RED CELL DISTRIBUTION WIDTH 15.1 % (11.6-14.6)
[2020-12-30 16:00] VITALS: BP_SYST 100; BP_SYST 95; BP_DIAS 54; BP_DIAS 63
[2020-12-30 16:24] LABS: CORTISOL 13.4 ucg/dL
[2020-12-30] MEDS: ENOXAPARIN 40MG/0.4ML SYR SUBCUT SCH (20:38)
[2020-12-30] MEDS: MORPHINE SULFATE 2 MG/ML CPJ (NOT FOR IM USE) IV PRN (20:39)
[2020-12-30 20:42] VITALS: BP 110/65
[2020-12-31 00:51] VITALS: BP 109/62
[2020-12-31] MEDS: DEXT 10% WATER 1,000 ML IV SCH ×2 (02:59→15:59)
[2020-12-31 05:02] VITALS: BP 96/45
[2020-12-31] MEDS: SODIUM CHLORIDE 0.9% INJ 3ML FLUSH IVF SCH ×3 (06:22→21:05)
[2020-12-31] MEDS: BLOOD SUGAR DIAGNOSTIC STRIP TEST SCH ×4 (06:39→21:05)
[2020-12-31] MEDS: INSULIN LISPRO 100 UNITS/ML SUBCUT SCH ×4 (06:39→21:00)
[2020-12-31] MEDS: DEXTROSE 50% WATER 50ML SYRINGE IV PRN (06:42)
[2020-12-31 08:00] VITALS: BP 113/63
[2020-12-31 12:00] VITALS: BP 107/52
[2020-12-31 16:00] VITALS: BP 113/78
[2020-12-31] MEDS: MORPHINE SULFATE 2 MG/ML CPJ (NOT FOR IM USE) IV PRN (16:00)
[2020-12-31] MEDS: PANTOPRAZOLE 40MG DR TABLET PO SCH (17:21)
[2020-12-31 20:33] VITALS: BP 101/66
[2020-12-31] MEDS: ENOXAPARIN 40MG/0.4ML SYR SUBCUT SCH (21:05)
[2021-01-01] VITALS: BP 98/56
[2021-01-01 04:00] VITALS: BP 92/57
[2021-01-01] MEDS: DEXT 10% WATER 1,000 ML IV SCH ×2 (04:13→17:28)
[2021-01-01] MEDS: PANTOPRAZOLE 40MG DR TABLET PO SCH (06:31)
[2021-01-01] MEDS: SODIUM CHLORIDE 0.9% INJ 3ML FLUSH IVF SCH ×3 (06:31→21:28)
[2021-01-01] MEDS: BLOOD SUGAR DIAGNOSTIC STRIP TEST SCH ×4 (06:31→21:28)
[2021-01-01] MEDS: INSULIN LISPRO 100 UNITS/ML SUBCUT SCH ×4 (06:32→21:00)
[2021-01-01] MEDS: MORPHINE SULFATE 2 MG/ML CPJ (NOT FOR IM USE) IV PRN ×2 (06:32→17:26)
[2021-01-01 08:00] VITALS: BP 116/66
[2021-01-01] MEDS: AZITHROMYCIN 500 MG TABLET PO SCH (09:47)
[2021-01-01 12:00] VITALS: BP 99/65
[2021-01-01 16:00] VITALS: BP 105/76
[2021-01-01 20:00] VITALS: BP 127/55
[2021-01-01] MEDS: ENOXAPARIN 40MG/0.4ML SYR SUBCUT SCH (21:28)
[2021-01-02] VITALS: BP 99/54
[2021-01-02 04:00] VITALS: BP 115/62
[2021-01-02] MEDS: PANTOPRAZOLE 40MG DR TABLET PO SCH (06:19)
[2021-01-02] MEDS: BLOOD SUGAR DIAGNOSTIC STRIP TEST SCH ×4 (06:19→20:53)
[2021-01-02] MEDS: DEXT 10% WATER 1,000 ML IV SCH ×2 (06:19→20:53)
[2021-01-02] MEDS: SODIUM CHLORIDE 0.9% INJ 3ML FLUSH IVF SCH ×3 (06:19→21:00)
[2021-01-02] MEDS: INSULIN LISPRO 100 UNITS/ML SUBCUT SCH ×4 (06:19→20:53)
[2021-01-02] MEDS: MORPHINE SULFATE 2 MG/ML CPJ (NOT FOR IM USE) IV PRN (06:34)
[2021-01-02 08:00] VITALS: BP 101/54
[2021-01-02] MEDS: AZITHROMYCIN 500 MG TABLET PO SCH (08:55)
[2021-01-02] MEDS: HYDROCODONE/ACETAMINOPHEN 10/325MG TABLET PO PRN (13:46)
[2021-01-02 16:00] VITALS: BP 118/57
[2021-01-02 19:07] LABS: CLARITY URINE CLEAR (CLEAR); COLOR URINE YELLOW (YELLOW); KETONES URINE NEGATIVE (NEGATIVE); LEUKOCYTE ESTERASE URINE 1+ (NEGATIVE); NITRITE URINE NEGATIVE (NEGATIVE); OCCULT BLOOD URINE NEGATIVE (NEGATIVE); PROTEIN URINE NEGATIVE (NEGATIVE); SPECIFIC GRAVITY URINE 1.005 (1.005-1.030); UROBILINOGEN URINE 0.2 E.U./dL (0.2-1.0)
[2021-01-02 20:00] VITALS: BP 118/83
[2021-01-02] MEDS: ENOXAPARIN 40MG/0.4ML SYR SUBCUT SCH (21:00)
[2021-01-03] VITALS: BP 119/59
[2021-01-03] MEDS: HYDROCODONE/ACETAMINOPHEN 10/325MG TABLET PO PRN ×2 (02:35→09:50)
[2021-01-03 04:00] VITALS: BP 93/48
[2021-01-03] MEDS: SODIUM CHLORIDE 0.9% INJ 3ML FLUSH IVF SCH ×2 (06:00→14:00)
[2021-01-03] MEDS: BLOOD SUGAR DIAGNOSTIC STRIP TEST SCH ×2 (06:45→11:45)
[2021-01-03] MEDS: PANTOPRAZOLE 40MG DR TABLET PO SCH (06:55)
[2021-01-03] MEDS: INSULIN LISPRO 100 UNITS/ML SUBCUT SCH ×2 (07:15→12:15)
[2021-01-03 08:00] VITALS: BP 102/50
[2021-01-03] MEDS: AZITHROMYCIN 500 MG TABLET PO SCH (09:15)
[2021-01-03 09:50] VITALS: BP 102/50
== END 2021-01-03 15:10 | disposition home health service (06) | DRG 371 ==
LOC: ER 10:28 → 5WST 16:09 → ENRESERV 16:45
PROVIDERS: ADMIT Internal Medicine; ATTEND Internal Medicine
PROC: 05H533Z Insertion of Infusion Device into Right Subclavian Vein, Percutaneous Approach (ICD-10-PCS; principal; 2020-12-29)
PROC: B54MZZA Ultrasonography of Right Upper Extremity Veins, Guidance (ICD-10-PCS; 2020-12-29)
DX: A04.5 Campylobacter enteritis (principal); I50.33 Acute on chronic diastolic (congestive) heart failure; K56.609 Unspecified intestinal obstruction, unspecified as to partial versus complete obstruction; R65.10 Systemic inflammatory response syndrome (SIRS) of non-infectious origin without acute organ dysfunction; E11.51 Type 2 diabetes mellitus with diabetic peripheral angiopathy without gangrene; I11.0 Hypertensive heart disease with heart failure; E86.0 Dehydration; E11.649 Type 2 diabetes mellitus with hypoglycemia without coma; D50.9 Iron deficiency anemia, unspecified; E66.01 Morbid (severe) obesity due to excess calories; M48.00 Spinal stenosis, site unspecified; I87.8 Other specified disorders of veins; G47.33 Obstructive sleep apnea (adult) (pediatric); Z86.718 Personal history of other venous thrombosis and embolism; Z88.1 Allergy status to other antibiotic agents; Z88.2 Allergy status to sulfonamides; Z88.8 Allergy status to other drugs, medicaments and biological substances; Z79.899 Other long term (current) drug therapy; Z79.2 Long term (current) use of antibiotics; Z79.891 Long term (current) use of opiate analgesic; Z83.3 Family history of diabetes mellitus; Z93.3 Colostomy status; Z68.38 Body mass index [BMI] 38.0-38.9, adult
CPT/HCPCS: 36415; 71045; 74018; 74177; 76700; 76937; 80048; 80053; 80061; 81003; 82040; 82533; 82607; 82728; 82962; 83036; 83540; 83550; 84134; 84443; 85025; 85044; 87015; 87045; 87077; 87186; 87427; 87449; 87493; 89055; 93005; 93970; 93971; 97162; 97535; 99291; A6261; C1725; C1893; J1200; J1650; J2270; J2405; J3490; J7030; Q9967; A4315

== ENCOUNTER 2021-01-07 10:44 | Emergency (ER) | payer MEDICARE, MEDICAID ==
[~2021-01-07] VITALS: Ht 162.6 cm; Wt 120.0 kg
[~2021-01-07 10:44] MED LIST changes: +FAMO20TA8 PO; +FURO40TA5 PO
[2021-01-07 11:45] LABS: BASOPHILS % 0.5 % (0.0-2.0); HEMATOCRIT. 31.6 % (36.0-48.0); HEMOGLOBIN. 10.7 g/dL (12.0-16.0); LYMPHOCYTES % 25.8 % (20.0-50.0); MEAN CORPUSCULAR HEMOGLOBIN 32.8 pg (28.0-32.0); MEAN CORPUSCULAR VOLUME 96.9 fL (81.0-99.0); MEAN PLATELET VOLUME 6.7 fl (7.4-10.4); MONOCYTES % 9.8 % (2.0-8.0); NEUTROPHILS % 60.9 % (40.0-76.0); PLATELET 379 x1000/uL (130-400); RED BLOOD CELL COUNT 3.26 mill/uL (4.2-5.4); RED CELL DISTRIBUTION WIDTH 14.9 % (11.6-14.6)
[2021-01-07 11:51] LABS: CHLORIDE 105 mEq/L (98-107)
[2021-01-07] MEDS ORDERED: DEXTROSE 50% WATER 50ML SYRINGE IV ONE (13:00)
[2021-01-07] MEDS ORDERED: GLUCAGON,HUMAN RECOMBINANT 1MG/VIAL IM ONE (15:45)
[2021-01-07 19:20] VITALS: BP 128/81
== END 2021-01-07 19:28 | disposition home or self-care (01) ==
LOC: ER 10:57
DX: E16.2 Hypoglycemia, unspecified (principal); R53.1 Weakness; R41.82 Altered mental status, unspecified; D64.9 Anemia, unspecified; I10 Essential (primary) hypertension; Z98.890 Other specified postprocedural states; Z79.899 Other long term (current) drug therapy; Z88.0 Allergy status to penicillin; Z88.2 Allergy status to sulfonamides
CPT/HCPCS: 36415; 70450; 71045; 80053; 82962; 84484; 85025; 93005; 96372; 99285; J1610

== ENCOUNTER → 2021-12-17 | Day surgery (SDC) | payer MEDICARE, MEDICAID ==
[~2021-12-17] VITALS: Ht 165.1 cm; Wt 136.1 kg
[~2021-12-17] MED LIST changes: +ACETAMINOPHEN 325MG TABLET PO PRN; -ALBU6.7H11 INH; +ALBU6.7H15 INH; +ATROPINE SULFATE 1MG/10ML SYR IV PRN; +DIPHENHYDRAMINE 50MG/ML VIAL ONE; +FENTANYL CITRATE/PF 50MCG/ML 2ML VIAL ONE; +HEPARIN SODIUM 1,000 UNIT/1ML VIAL IV ONE; +HYDRALAZINE 20MG/ML VIAL IV NR; +HYDRALAZINE 20MG/ML VIAL IV PRN; +IODIXANOL 320MG/ML 100 ML BOTTLE IV ONE; +LIDOCAINE HCL 1% 10 MG/ML 10ML VIAL ONE; +MIDAZOLAM HCL 2 MG/2 ML VIAL ONE; +NICARDIPINE 100MCG/ML 10ML VIAL (CATH LAB) IV ONE; +NITROGLYCERIN 50MCG/ML 10ML VIAL (CATH LAB) IV ONE; +TURMERIC; +VERAPAMIL HCL 2.5 MG/1 ML 2ML VIAL IV ONE; +VITAMIN E
[2021-12-17 07:49] LABS: INR 1.1; PROTHROMBIN TIME 11.4 sec (9.6-11.0)
[2021-12-17 07:52] LABS: HEMATOCRIT 36.6 % (36.0-48.0); HEMOGLOBIN 12.3 g/dL (12.0-16.0); MEAN CORPUSCULAR HEMOGLOBIN 33.4 pg (28.0-32.0); MEAN CORPUSCULAR VOLUME 99.5 fL (81.0-99.0); PLATELET 247 x1000/uL (130-400); RED BLOOD CELL COUNT 3.68 mill/uL (4.2-5.4); RED CELL DISTRIBUTION WIDTH 14.4 % (11.6-14.6)
[2021-12-17 07:57] LABS: CHLORIDE 106 mEq/L (98-107)
== END | disposition home or self-care (01) ==
LOC: CCL 05:39
PROVIDERS: ATTEND Internal Medicine
DX: I20.0 Unstable angina (principal); E66.01 Morbid (severe) obesity due to excess calories; Z79.899 Other long term (current) drug therapy; Z79.01 Long term (current) use of anticoagulants; Z98.890 Other specified postprocedural states; Z20.822 Contact with and (suspected) exposure to COVID-19; Z88.1 Allergy status to other antibiotic agents; Z88.0 Allergy status to penicillin; Z88.8 Allergy status to other drugs, medicaments and biological substances
CPT/HCPCS: 36415; 80053; 85027; 85347; 85610; 85730; 87426; 92978; 93458; 99152; 99153; C1753; C1769; C1887; C1893; J0360; J1200; J1644; J2250; J3010; J3490; Q9967; G0500

== ENCOUNTER 2022-03-29 13:55 | Inpatient (IN) | payer MEDICARE, MEDICAID ==
[~2022-03-29] VITALS: Ht 152.4 cm; Wt 149.7 kg
[2022-03-29] MEDS: SODIUM CHLORIDE 0.45% 1,000 ML IV SCH (07:00)
[~2022-03-29 13:55] MED LIST changes: -ACETAMINOPHEN 325MG TABLET PO PRN; -ATROPINE SULFATE 1MG/10ML SYR IV PRN; -DIPHENHYDRAMINE 50MG/ML VIAL ONE; -FENTANYL CITRATE/PF 50MCG/ML 2ML VIAL ONE; -HEPARIN SODIUM 1,000 UNIT/1ML VIAL IV ONE; -HYDRALAZINE 20MG/ML VIAL IV NR; -HYDRALAZINE 20MG/ML VIAL IV PRN; -IODIXANOL 320MG/ML 100 ML BOTTLE IV ONE; -LIDOCAINE HCL 1% 10 MG/ML 10ML VIAL ONE; -MIDAZOLAM HCL 2 MG/2 ML VIAL ONE; -NICARDIPINE 100MCG/ML 10ML VIAL (CATH LAB) IV ONE; -NITROGLYCERIN 50MCG/ML 10ML VIAL (CATH LAB) IV ONE; -VERAPAMIL HCL 2.5 MG/1 ML 2ML VIAL IV ONE
[2022-03-29 17:22] LABS: BASOPHILS % 0.5 % (0.0-2.0); EOSINOPHILS % 2.9 % (0.0-5.0); HEMATOCRIT. 34.7 % (36.0-48.0); HEMOGLOBIN. 11.5 g/dL (12.0-16.0); LYMPHOCYTES % 36.6 % (20.0-50.0); MEAN CORPUSCULAR HEMOGLOBIN 33.3 pg (28.0-32.0); MEAN CORPUSCULAR VOLUME 100.3 fL (81.0-99.0); MONOCYTES % 11.2 % (2.0-8.0); NEUTROPHILS % 48.8 % (40.0-76.0); PLATELET 220 x1000/uL (130-400); RED BLOOD CELL COUNT 3.46 mill/uL (4.2-5.4); RED CELL DISTRIBUTION WIDTH 13.9 % (11.6-14.6)
[2022-03-29 17:30] LABS: CHLORIDE 106 mEq/L (98-107)
[2022-03-29] MEDS ORDERED: MEROPENEM 500 MG in SODIUM CHLORIDE 0.9% 50 ML IV STA (18:07)
[2022-03-29] MEDS ORDERED: CLINDAMYCIN 600 MG PREMIX 50 ML IV NR (18:15)
[2022-03-29] MEDS ORDERED: CLINDAMYCIN 600 MG in DEXTROSE 5% WATER 50 ML IV ONE (18:15)
[2022-03-29] MEDS ORDERED: HYDRALAZINE 20MG/ML VIAL IV PRN (19:15)
[2022-03-29] MEDS ORDERED: CLONIDINE 0.1MG TABLET PO PRN (19:15)
[2022-03-29] MEDS ORDERED: DOCUSATE SODIUM 100MG CAPSULE PO PRN (19:15)
[2022-03-29] MEDS ORDERED: MORPHINE SULFATE 2 MG/ML CPJ (NOT FOR IM USE) IV PRN (19:15)
[2022-03-29] MEDS ORDERED: IPRATROPIUM/ALBUTEROL 0.5-3(2.5)MG/3ML NEB HHN PRN (19:15)
[2022-03-29] MEDS ORDERED: GUAIFENESIN 200MG/10ML SUGAR FREE UDC PO PRN (19:15)
[2022-03-29] MEDS ORDERED: MAGNESIUM/ALUMINUM HYDROXIDE/SIMETHICONE 30ML UDC PO PRN (19:15)
[2022-03-29] MEDS ORDERED: NALOXONE HCL 0.4MG/ML VIAL IV PRN (19:15)
[2022-03-29] MEDS ORDERED: DIPHENHYDRAMINE 50MG/ML VIAL IV PRN (19:15)
[2022-03-29] MEDS ORDERED: ACETAMINOPHEN 325MG TABLET PO PRN (19:15)
[2022-03-29] MEDS ORDERED: ONDANSETRON HCL 4MG/2ML INJ IV PRN (19:15)
[2022-03-29] MEDS: ENOXAPARIN 40MG/0.4ML SYR SUBCUT SCH (21:28)
[2022-03-29 21:30] VITALS: BP 133/53
[2022-03-29 21:32] VITALS: BP 133/53
[2022-03-29] MEDS: SODIUM CHLORIDE 0.9% INJ 3ML FLUSH IVF SCH (22:00)
[2022-03-30] VITALS: BP 132/52
[2022-03-30] MEDS: HYDROCODONE/ACETAMINOPHEN 5/325MG TABLET PO PRN ×2 (00:41→08:36)
[2022-03-30 04:00] VITALS: BP 130/55
[2022-03-30] MEDS: SODIUM CHLORIDE 0.9% INJ 3ML FLUSH IVF SCH ×3 (06:06→21:00)
[2022-03-30 07:42] LABS: BASOPHILS % 0.6 % (0.0-2.0); EOSINOPHILS % 3.3 % (0.0-5.0); HEMATOCRIT. 34.3 % (36.0-48.0); HEMOGLOBIN. 11.5 g/dL (12.0-16.0); LYMPHOCYTES % 37.5 % (20.0-50.0); MEAN CORPUSCULAR HEMOGLOBIN 33.3 pg (28.0-32.0); MEAN CORPUSCULAR VOLUME 99.6 fL (81.0-99.0); MEAN PLATELET VOLUME 6.4 fl (7.4-10.4); MONOCYTES % 11.6 % (2.0-8.0); PLATELET 221 x1000/uL (130-400); RED BLOOD CELL COUNT 3.44 mill/uL (4.2-5.4); RED CELL DISTRIBUTION WIDTH 13.7 % (11.6-14.6)
[2022-03-30 07:43] LABS: CHLORIDE 103 mEq/L (98-107)
[2022-03-30 08:00] VITALS: BP 114/79
[2022-03-30] MEDS: ENOXAPARIN 40MG/0.4ML SYR SUBCUT SCH ×2 (08:35→20:57)
[2022-03-30] MEDS ORDERED: *PATIENT'S OWN MEDICATION STORAGE XX SCH (11:45)
[2022-03-30 12:00] VITALS: BP 160/69
[2022-03-30] MEDS: SODIUM CHLORIDE 0.45% 1,000 ML IV SCH (13:20)
[2022-03-30 16:00] VITALS: BP 145/68
[2022-03-30 20:00] VITALS: BP 139/71
[2022-03-30] MEDS: MEROPENEM 1,000 MG in SODIUM CHLORIDE 0.9% 100 ML IV SCH (20:56)
[2022-03-30 23:24] LABS: CLARITY URINE CLEAR (CLEAR); COLOR URINE YELLOW (YELLOW); KETONES URINE TRACE (NEGATIVE); LEUKOCYTE ESTERASE URINE TRACE (NEGATIVE); NITRITE URINE NEGATIVE (NEGATIVE); OCCULT BLOOD URINE NEGATIVE (NEGATIVE); PROTEIN URINE NEGATIVE (NEGATIVE); SPECIFIC GRAVITY URINE 1.015 (1.005-1.030); UROBILINOGEN URINE 0.2 E.U./dL (0.2-1.0)
[2022-03-31] VITALS: BP 157/84
[2022-03-31 04:00] VITALS: BP 133/77
[2022-03-31] MEDS: SODIUM CHLORIDE 0.45% 1,000 ML IV SCH ×2 (04:35→21:15)
[2022-03-31] MEDS: SODIUM CHLORIDE 0.9% INJ 3ML FLUSH IVF SCH ×3 (06:00→22:00)
[2022-03-31 07:01] LABS: BASOPHILS % 0.5 % (0.0-2.0); EOSINOPHILS % 2.8 % (0.0-5.0); HEMATOCRIT. 34.2 % (36.0-48.0); HEMOGLOBIN. 11.4 g/dL (12.0-16.0); LYMPHOCYTES % 37.1 % (20.0-50.0); MEAN CORPUSCULAR HEMOGLOBIN 32.8 pg (28.0-32.0); MEAN CORPUSCULAR VOLUME 98.9 fL (81.0-99.0); MEAN PLATELET VOLUME 6.4 fl (7.4-10.4); MONOCYTES % 11.4 % (2.0-8.0); NEUTROPHILS % 48.2 % (40.0-76.0); PLATELET 210 x1000/uL (130-400); RED BLOOD CELL COUNT 3.46 mill/uL (4.2-5.4)
[2022-03-31] MEDS: MEROPENEM 1,000 MG in SODIUM CHLORIDE 0.9% 100 ML IV SCH ×3 (07:08→20:29)
[2022-03-31 08:00] VITALS: BP 140/76
[2022-03-31] MEDS: ENOXAPARIN 40MG/0.4ML SYR SUBCUT SCH ×2 (08:50→20:30)
[2022-03-31 12:00] VITALS: BP 138/72
[2022-03-31 16:00] VITALS: BP 156/82
[2022-03-31 20:00] VITALS: BP 147/86
[2022-04-01] VITALS: BP 128/77
[2022-04-01 04:00] VITALS: BP 131/71
[2022-04-01 06:19] LABS: BASOPHILS % 0.5 % (0.0-2.0); EOSINOPHILS % 2.6 % (0.0-5.0); HEMATOCRIT. 33.4 % (36.0-48.0); HEMOGLOBIN. 11.4 g/dL (12.0-16.0); LYMPHOCYTES % 35.2 % (20.0-50.0); MEAN CORPUSCULAR HEMOGLOBIN 33.7 pg (28.0-32.0); MEAN CORPUSCULAR VOLUME 98.7 fL (81.0-99.0); MEAN PLATELET VOLUME 6.2 fl (7.4-10.4); MONOCYTES % 12.1 % (2.0-8.0); NEUTROPHILS % 49.6 % (40.0-76.0); PLATELET 204 x1000/uL (130-400); RED BLOOD CELL COUNT 3.38 mill/uL (4.2-5.4)
[2022-04-01] MEDS: MEROPENEM 1,000 MG in SODIUM CHLORIDE 0.9% 100 ML IV SCH ×2 (06:38→14:42)
[2022-04-01] MEDS: SODIUM CHLORIDE 0.9% INJ 3ML FLUSH IVF SCH ×2 (06:42→14:42)
[2022-04-01 08:00] VITALS: BP 158/77
[2022-04-01] MEDS: ENOXAPARIN 40MG/0.4ML SYR SUBCUT SCH (08:34)
[2022-04-01] MEDS: HYDROCODONE/ACETAMINOPHEN 5/325MG TABLET PO PRN (08:36)
[2022-04-01 14:12] VITALS: BP 151/72
[2022-04-01] MEDS: SODIUM CHLORIDE 0.45% 1,000 ML IV SCH (14:42)
== END 2022-04-01 15:07 | disposition home or self-care (01) | DRG 674 ==
LOC: ER 14:06 → EDBEDREQTM 18:21 → EDBEDREQ 18:21 → EDBEDREQSVC 18:21 → EDBEDREQTM 19:03 → EDBEDREQ 19:03 → ENRESERV 19:46 → 6EST 21:43 → UNDOADMIN 21:43
PROVIDERS: ADMIT Internal Medicine; ATTEND Internal Medicine
PROC: 0JBN0ZZ Excision of Right Lower Leg Subcutaneous Tissue and Fascia, Open Approach (ICD-10-PCS; principal; 2022-03-31)
DX: N39.0 Urinary tract infection, site not specified (principal); L97.919 Non-pressure chronic ulcer of unspecified part of right lower leg with unspecified severity; Z68.44 Body mass index [BMI] 60.0-69.9, adult; E66.01 Morbid (severe) obesity due to excess calories; D64.9 Anemia, unspecified; I10 Essential (primary) hypertension; Z88.1 Allergy status to other antibiotic agents; Z88.0 Allergy status to penicillin; Z83.3 Family history of diabetes mellitus
CPT/HCPCS: 36415; 71045; 73590; 80048; 80053; 81003; 83605; 85025; 93005; 99285; J1650; J2185; J2405; J3490; J7050; J7060

== ENCOUNTER 2023-03-04 06:25 | Inpatient (IN) | payer MEDICARE, MEDICAID ==
[2023-03-04] VITALS (11 sets, daily range): BP systolic 123–150; BP diastolic 55–108; PULSE 87–118; RESP 14–21; TEMP 97.9–98
[~2023-03-04] VITALS: Ht 166.4 cm; Wt 148.1 kg
[~2023-03-04 06:25] MED LIST changes: +DOCU-150 MT; +FURO-152 PO; -FURO40TA5 PO
[2023-03-04] MEDS ORDERED: NITROGLYCERIN 50MCG/ML 10ML VIAL (CATH LAB) IV ONE (08:00)
[2023-03-04 08:04] LABS: HEMATOCRIT 36.6 % (36.0-48.0); HEMOGLOBIN 12.4 g/dL (12.0-16.0); MEAN CORPUSCULAR HEMOGLOBIN 33.8 pg (28.0-32.0); MEAN CORPUSCULAR VOLUME 99.8 fL (81.0-99.0); PLATELET 256 x1000/uL (130-400); RED BLOOD CELL COUNT 3.66 mill/uL (4.2-5.4); RED CELL DISTRIBUTION WIDTH 14.5 % (11.6-14.6)
[2023-03-04 08:16] LABS: INR 1.1; PROTHROMBIN TIME 11.7 sec (9.6-11.0)
[2023-03-04] MEDS ORDERED: FENTANYL CITRATE/PF 50MCG/ML 2ML VIAL ONE (08:51)
[2023-03-04] MEDS ORDERED: MIDAZOLAM HCL 2 MG/2 ML VIAL ONE (08:51)
[2023-03-04] MEDS ORDERED: LIDOCAINE HCL 1% 20ML VIAL (Pyxis) INJ ONE ×2 (08:51→09:16)
[2023-03-04] MEDS ORDERED: HEPARIN 1000 UNITS/ML 10ML ONE (08:51)
[2023-03-04] MEDS ORDERED: IODIXANOL 320MG/ML 100 ML BOTTLE IV ONE ×2 (08:51→10:08)
[2023-03-04] MEDS ORDERED: HYDRALAZINE 20MG/ML VIAL ONE (10:21)
[2023-03-04] MEDS ORDERED: ATROPINE SULFATE 1MG/10ML SYR IV PRN (10:45)
[2023-03-04] MEDS ORDERED: ACETAMINOPHEN 325MG TABLET PO PRN ×3 (10:45→14:45)
[2023-03-04] MEDS ORDERED: DOCUSATE SODIUM 100MG CAPSULE PO PRN (14:45)
[2023-03-04] MEDS ORDERED: NITROGLYCERIN 0.4MG TABLET SL SL PRN (14:45)
[2023-03-04] MEDS ORDERED: GUAIFENESIN 200MG/10ML SUGAR FREE UDC PO PRN (14:45)
[2023-03-04] MEDS ORDERED: ONDANSETRON HCL 4MG/2ML INJ IV PRN (14:45)
[2023-03-04] MEDS ORDERED: CLONIDINE 0.1MG TABLET PO PRN (14:45)
[2023-03-04] MEDS ORDERED: MAGNESIUM/ALUMINUM HYDROXIDE/SIMETHICONE 30ML UDC PO PRN (14:45)
[2023-03-04] MEDS ORDERED: IPRATROPIUM/ALBUTEROL 0.5-3(2.5)MG/3ML NEB NEB PRN (14:45)
[2023-03-04] MEDS ORDERED: NALOXONE HCL 0.4MG/ML VIAL IV PRN (15:00)
[2023-03-04] MEDS: ENOXAPARIN 40MG/0.4ML SYR SUBCUT SCH (17:28)
[2023-03-04] MEDS: TRAMADOL 50MG TABLET PO PRN (17:28)
[2023-03-04] MEDS ORDERED: ZOLPIDEM TARTRATE 5MG TABLET PO PRN (21:00)
[2023-03-04] MEDS: FAMOTIDINE 20MG TABLET PO SCH (21:16)
[2023-03-04] MEDS: ATORVASTATIN CALCIUM 10MG TABLET PO SCH (21:16)
[2023-03-05] VITALS (8 sets, daily range): BP systolic 128–148; BP diastolic 68–78; PULSE 74–94; RESP 14–33; TEMP 97.7–99
[2023-03-05] MEDS: ENOXAPARIN 40MG/0.4ML SYR SUBCUT SCH ×2 (06:05→17:43)
[2023-03-05 07:41] LABS: BASOPHILS % 0.3 % (0.0-2.0); EOSINOPHILS % 2.6 % (0.0-5.0); HEMOGLOBIN. 11.7 g/dL (12.0-16.0); LYMPHOCYTES % 19.9 % (20.0-50.0); MEAN CORPUSCULAR HEMOGLOBIN 32.9 pg (28.0-32.0); MEAN CORPUSCULAR VOLUME 100.8 fL (81.0-99.0); MEAN PLATELET VOLUME 6.5 fl (7.4-10.4); NEUTROPHILS % 63.2 % (40.0-76.0); PLATELET 211 x1000/uL (130-400); RED BLOOD CELL COUNT 3.57 mill/uL (4.2-5.4); RED CELL DISTRIBUTION WIDTH 14.3 % (11.6-14.6)
[2023-03-05 07:57] LABS: PHOSPHORUS 3.2 mg/dL (2.5-4.9)
[2023-03-05] MEDS: FAMOTIDINE 20MG TABLET PO SCH ×2 (08:52→21:22)
[2023-03-05] MEDS: ASPIRIN 81MG EC TABLET PO SCH (08:52)
[2023-03-05] MEDS ORDERED: ATOR10TA MT (09:44)
[2023-03-05] MEDS ORDERED: ASPI-1406 MT (09:44)
[2023-03-05] MEDS: FUROSEMIDE 20MG/2ML VIAL IVP SCH (10:39)
[2023-03-05] MEDS: TRAMADOL 50MG TABLET PO PRN (15:46)
[2023-03-05] MEDS: ATORVASTATIN CALCIUM 10MG TABLET PO SCH (21:22)
[2023-03-06] VITALS: BP 106/52; PULSE 101; RESP 23; TEMP 98.3
[2023-03-06 04:00] VITALS: BP 132/69; PULSE 87; RESP 30
[2023-03-06] MEDS: ENOXAPARIN 40MG/0.4ML SYR SUBCUT SCH (06:09)
[2023-03-06 08:00] VITALS: BP 130/78; PULSE 78; RESP 18; TEMP 98.2
[2023-03-06] MEDS: ASPIRIN 81MG EC TABLET PO SCH (08:59)
[2023-03-06] MEDS: FUROSEMIDE 20MG/2ML VIAL IVP SCH (08:59)
[2023-03-06] MEDS: FAMOTIDINE 20MG TABLET PO SCH (08:59)
[2023-03-06] MEDS ORDERED: SPIRONOLACTONE 25MG TABLET PO SCH (09:00)
== END 2023-03-06 15:09 | disposition home or self-care (01) | DRG 299 ==
LOC: ANGIO 06:25 → 3WST 06:26 → SUPCPDRO 10:37
PROVIDERS: ADMIT Internal Medicine; ATTEND Internal Medicine
PROC: B41DYZZ Fluoroscopy of Aorta and Bilateral Lower Extremity Arteries using Other Contrast (ICD-10-PCS; principal; 2023-03-04)
DX: I73.9 Peripheral vascular disease, unspecified (principal); I50.33 Acute on chronic diastolic (congestive) heart failure; I13.0 Hypertensive heart and chronic kidney disease with heart failure and stage 1 through stage 4 chronic kidney disease, or unspecified chronic kidney disease; Z68.43 Body mass index [BMI] 50.0-59.9, adult; I47.1 Supraventricular tachycardia; E66.01 Morbid (severe) obesity due to excess calories; N18.9 Chronic kidney disease, unspecified; J45.909 Unspecified asthma, uncomplicated; E78.00 Pure hypercholesterolemia, unspecified; Z86.718 Personal history of other venous thrombosis and embolism; Z88.0 Allergy status to penicillin; Z88.8 Allergy status to other drugs, medicaments and biological substances
CPT/HCPCS: 36415; 80048; 80061; 83036; 83735; 84100; 85025; 85027; J0360; J1644; J1650; J1940; J2250; J3010; J3490; Q9967

== ENCOUNTER → 2023-05-08 | Outpatient (CLI) | payer MEDICARE, MEDICAID ==
[~2023-05-08] MED LIST changes: +ASPI-1406 MT; +ATOR10TA MT; -ATOR10TA69 MT; -DICL100G31 TP; -DOCU-150 MT; -TURMERIC
== END | disposition home or self-care (01) ==
LOC: RAD 11:24
PROVIDERS: ATTEND Internal Medicine Critical Care Medicine
DX: R06.02 Shortness of breath (principal)
CPT/HCPCS: 71046

== ENCOUNTER 2024-02-10 15:48 | Inpatient (IN) | payer MEDICARE, MEDICAID ==
[~2024-02-10] VITALS: Ht 165.1 cm; Wt 141.5 kg
[~2024-02-10 15:48] MED LIST changes: +ASCO500C18 PO; -ATOR10TA MT; +BRIM15DR2 EACHEYE; +CHOL400D7 PO; -FURO-152 PO; +FURO40TA5 PO; -GABA-290 PO; +IPRA42SP INH; +LIP40 PO; +SUPER BEETS PO; +TUMERIC PO; -VITAMIN E; +[UNRECOGNIZED DRUG - OTHER] NS
[2024-02-10 16:45] LABS: BASOPHILS % 0.5 % (0.0-2.0); DIFFERENTIAL COMMENT 0; EOSINOPHILS % 5.2 % (0.0-5.0); HEMATOCRIT. 37.6 % (36.0-48.0); LYMPHOCYTES % 27.1 % (20.0-50.0); MEAN CORPUSCULAR HEMOGLOBIN 32.9 pg (28.0-32.0); MEAN CORPUSCULAR VOLUME 102.8 fL (81.0-99.0); MEAN PLATELET VOLUME 6.8 fl (7.4-10.4); MONOCYTES % 6.4 % (2.0-8.0); NEUTROPHILS % 60.8 % (40.0-76.0); PLATELET 296 x1000/uL (130-400); RED BLOOD CELL COUNT 3.66 mill/uL (4.2-5.4); RED CELL DISTRIBUTION WIDTH 16.3 % (11.6-14.6); WHITE BLOOD COUNT 6.5 x1000/uL (4.5-11.0)
[2024-02-10 16:54] LABS: CHLORIDE 102 mEq/L (98-107); POTASSIUM 4.3 mEq/L (3.5-5.1); SODIUM 136 mEq/L (136-145)
[2024-02-10 16:55] LABS: CALCIUM 8.6 mg/dL (8.7-10.4); CARBON DIOXIDE 26 mEq/L (21-32); INR 1.2; PROTHROMBIN TIME 12.8 sec (9.6-11.0)
[2024-02-10 17:00] LABS: CREATININE 1.3 mg/dL (0.6-1.0); GLUCOSE 98 mg/dL (70-105); UREA NITROGEN BLOOD 15 mg/dL (9-23)
[2024-02-10 17:01] LABS: TROPONIN I HIGH SENSITIVITY 7 ng/L (3.0-34)
[2024-02-10] MEDS ORDERED: DOCUSATE SODIUM 100MG CAPSULE PO PRN (19:15)
[2024-02-10] MEDS ORDERED: ACETAMINOPHEN 325MG TABLET PO PRN ×2 (19:15)
[2024-02-10] MEDS ORDERED: ONDANSETRON HCL 4MG/2ML INJ IV PRN (19:15)
[2024-02-10] MEDS ORDERED: HEPARIN 25,000 UNITS PREMIX 250 ML IV SCH (19:15)
[2024-02-10] MEDS ORDERED: IPRATROPIUM/ALBUTEROL 0.5-3(2.5)MG/3ML NEB HHN PRN (19:15)
[2024-02-10] MEDS ORDERED: CLONIDINE 0.1MG TABLET PO PRN (19:15)
[2024-02-10] MEDS ORDERED: HEPARIN BOLUS PRN aPTT 37-44 IV (20:00)
[2024-02-10] MEDS ORDERED: HEPARIN BOLUS PRN aPTT <36 IV (20:00)
[2024-02-10 20:50] LABS: CHLORIDE 101 mEq/L (98-107); POTASSIUM 3.8 mEq/L (3.5-5.1); SODIUM 137 mEq/L (136-145)
[2024-02-10 20:51] LABS: CALCIUM 8.7 mg/dL (8.7-10.4); CARBON DIOXIDE 29 mEq/L (21-32)
[2024-02-10 20:56] LABS: CREATININE 1.2 mg/dL (0.6-1.0); GLUCOSE 90 mg/dL (70-105); UREA NITROGEN BLOOD 17 mg/dL (9-23)
[2024-02-10 20:58] LABS: ALANINE AMINOTRANSFERASE 10 IU/L (10-49); ASPARTATE AMINOTRANSFERASE 19 IU/L (<34); BILIRUBIN TOTAL 1.2 mg/dL (0.1-1.0); PROTEIN TOTAL 7.8 g/dL (6.0-8.3)
[2024-02-10] MEDS: HEPARIN 80 UNITS/KG BOLUS IV SCH (22:25)
[2024-02-10] MEDS: HEPARIN 25,000 UNITS PREMIX 250 ML IV SCH (22:28)
[2024-02-10 23:30] VITALS: BP 117/59; PULSE 77; RESP 20; TEMP 98.4
[2024-02-11] VITALS: BP 117/59; PULSE 77; RESP 20; TEMP 98.4
[2024-02-11] MEDS: GUAIFENESIN 200MG/10ML SUGAR FREE UDC PO PRN (01:17)
[2024-02-11 02:15] LABS: CREATINE KINASE MB FRACTION < 0.5 ng/mL (0.5-3.6)
[2024-02-11 02:16] LABS: CREATINE KINASE 71 IU/L (34-145)
[2024-02-11 02:37] LABS: TROPONIN I HIGH SENSITIVITY < 4 ng/L (3.0-34)
[2024-02-11 03:59] LABS: BASOPHILS % 0.4 % (0.0-2.0); EOSINOPHILS % 4.5 % (0.0-5.0); HEMATOCRIT. 32.9 % (36.0-48.0); HEMOGLOBIN. 11.2 g/dL (12.0-16.0); LYMPHOCYTES % 16.6 % (20.0-50.0); MEAN CORPUSCULAR HGB CONC 33.9 g/dL (31.0-37.0); MEAN CORPUSCULAR VOLUME 97.4 fL (81.0-99.0); MEAN PLATELET VOLUME 6.5 fl (7.4-10.4); MONOCYTES % 10.6 % (2.0-8.0); NEUTROPHILS % 67.9 % (40.0-76.0); PLATELET 250 x1000/uL (130-400); RED BLOOD CELL COUNT 3.38 mill/uL (4.2-5.4); RED CELL DISTRIBUTION WIDTH 15.5 % (11.6-14.6); WHITE BLOOD COUNT 7.4 x1000/uL (4.5-11.0)
[2024-02-11 04:00] VITALS: BP 108/62; PULSE 84; RESP 20; TEMP 97.8
[2024-02-11 04:12] LABS: CREATINE KINASE MB FRACTION < 0.5 ng/mL (0.5-3.6)
[2024-02-11 04:13] LABS: LDL CHOLESTEROL 37 mg/dL (5-100); TRIGLYCERIDE 54 mg/dL (0-150); TROPONIN I HIGH SENSITIVITY 8 ng/L (3.0-34)
[2024-02-11 04:15] LABS: CHOLESTEROL 85 mg/dL (<200); CREATINE KINASE 80 IU/L (34-145); HDL CHOLESTEROL 32 mg/dL (>65)
[2024-02-11 04:16] LABS: T4 FREE 1.14 ng/dL (0.89-1.76); THYROID STIMULATING HORMONE 0.99 uIU/mL (0.55-4.78)
[2024-02-11 08:00] VITALS: BP 90/45; PULSE 81; RESP 18; TEMP 97.7
[2024-02-11] MEDS ORDERED: FUROSEMIDE 40MG/4 ML UDC PO SCH (09:00)
[2024-02-11] MEDS: SPIRONOLACTONE 25MG TABLET PO SCH (09:06)
[2024-02-11] MEDS: FUROSEMIDE 40MG/4 ML UDC PO SCH (09:07)
[2024-02-11 12:00] VITALS: BP_SYST 110; BP_SYST 145; BP_DIAS 60; BP_DIAS 80; PULSE 86; RESP 20; TEMP 100.8; TEMP 98.1
[2024-02-11 16:00] VITALS: BP 118/69; PULSE 89; RESP 18; TEMP 98.4
[2024-02-11 20:00] VITALS: BP 121/52; PULSE 90; RESP 19; TEMP 98.1
[2024-02-11 20:57] LABS: *AMPHETAMINES SCREEN URINE NEGATIVE (NEGATIVE); *BARBITURATES SCREEN URINE NEGATIVE (NEGATIVE); *BENZODIAZEPINES SCREEN URINE NEGATIVE (NEGATIVE); *COCAINE SCREEN URINE NEGATIVE (NEGATIVE)
[2024-02-11 20:58] LABS: CANNABINOID URINE SCREEN NEGATIVE (NEGATIVE); ECSTASY MDMA SCREEN URINE NEGATIVE (NEGATIVE); METHADONE URINE SCREEN NEGATIVE (NEGATIVE); OPIATES URINE SCREEN PRESUMPTIVE POSITIVE (NEGATIVE); PHENCYCLIDINE URINE SCREEN NEGATIVE (NEGATIVE)
[2024-02-11 21:12] LABS: CLARITY URINE CLEAR (CLEAR); COLOR URINE YELLOW (YELLOW); GLUCOSE URINE NEGATIVE (NEGATIVE); KETONES URINE NEGATIVE (NEGATIVE); LEUKOCYTE ESTERASE URINE NEGATIVE (NEGATIVE); NITRITE URINE NEGATIVE (NEGATIVE); OCCULT BLOOD URINE NEGATIVE (NEGATIVE); PROTEIN URINE NEGATIVE (NEGATIVE); SPECIFIC GRAVITY URINE 1.008 (1.005-1.030)
[2024-02-12] VITALS: BP 117/54; PULSE 90; RESP 20; TEMP 98.2
[2024-02-12 04:00] VITALS: BP 113/56; PULSE 90; RESP 20; TEMP 97.7
[2024-02-12 08:00] VITALS: BP 113/69; PULSE 81; RESP 20; TEMP 97.9
[2024-02-12 12:00] VITALS: BP 110/60; PULSE 79; RESP 18; TEMP 97.8
[2024-02-12] MEDS ORDERED: MENTHOL/LANOLIN/CALAMINE/ZN OX OINT 71GM TOP PRN (15:00)
[2024-02-12 16:00] VITALS: BP 113/58; PULSE 77; RESP 18; TEMP 98
[2024-02-12 20:00] VITALS: BP 128/48; PULSE 83; RESP 20; TEMP 100
[2024-02-12] MEDS: FAMOTIDINE 20MG TABLET PO SCH (21:11)
[2024-02-12] MEDS: FLUTICASONE PROPIONATE 50MCG/SPRAY BOTTLE BOTHNSTRLS SCH (21:11)
[2024-02-13] VITALS: BP 108/56; PULSE 87; RESP 20; TEMP 98.5
[2024-02-13 04:00] VITALS: BP 108/56; PULSE 87; RESP 20; TEMP 98.5
[2024-02-13 08:00] VITALS: BP 99/58; PULSE 85; RESP 18; TEMP 98.1
[2024-02-13 12:00] VITALS: BP 124/67; PULSE 88; RESP 18; TEMP 98.4
[2024-02-13 16:00] VITALS: BP 126/74; PULSE 80; RESP 18; TEMP 98.4
[2024-02-13 20:00] VITALS: BP 113/65; PULSE 85; RESP 17; TEMP 97
[2024-02-14] VITALS: BP 112/59; PULSE 84; RESP 18; TEMP 97.5
[2024-02-14 04:00] VITALS: BP 110/75; PULSE 87; RESP 18; TEMP 97.9
[2024-02-14 08:00] VITALS: BP 102/51; PULSE 80; RESP 18; TEMP 97.3
[2024-02-14 08:14] VITALS: BP 102/51; PULSE 80; TEMP 97.2; O2SAT 99
== END 2024-02-14 10:28 | disposition home or self-care (01) | DRG 314 ==
LOC: ER 15:48 → EDBEDREQTM 18:48 → EDBEDREQ 18:48 → 7WST 23:26
PROVIDERS: ADMIT Internal Medicine; ATTEND Internal Medicine
DX: T82.868A Thrombosis due to vascular prosthetic devices, implants and grafts, initial encounter (principal); J96.01 Acute respiratory failure with hypoxia; D68.9 Coagulation defect, unspecified; I13.0 Hypertensive heart and chronic kidney disease with heart failure and stage 1 through stage 4 chronic kidney disease, or unspecified chronic kidney disease; I50.42 Chronic combined systolic (congestive) and diastolic (congestive) heart failure; Z68.43 Body mass index [BMI] 50.0-59.9, adult; I47.10 Supraventricular tachycardia, unspecified; I72.1 Aneurysm of artery of upper extremity; E66.01 Morbid (severe) obesity due to excess calories; J44.89 Other specified chronic obstructive pulmonary disease; L30.9 Dermatitis, unspecified; R00.1 Bradycardia, unspecified; G62.9 Polyneuropathy, unspecified; Y83.8 Other surgical procedures as the cause of abnormal reaction of the patient, or of later complication, without mention of misadventure at the time of the procedure; D64.9 Anemia, unspecified; N18.31 Chronic kidney disease, stage 3a; Z88.3 Allergy status to other anti-infective agents; Z74.01 Bed confinement status; Z86.718 Personal history of other venous thrombosis and embolism; Z88.1 Allergy status to other antibiotic agents; Z88.2 Allergy status to sulfonamides; Z88.5 Allergy status to narcotic agent; Z88.8 Allergy status to other drugs, medicaments and biological substances; Z79.899 Other long term (current) drug therapy; Z79.82 Long term (current) use of aspirin; Z79.01 Long term (current) use of anticoagulants; Y92.89 Other specified places as the place of occurrence of the external cause
CPT/HCPCS: 36415; 71045; 76881; 80048; 80053; 80061; 80305; 81003; 82550; 82553; 83880; 84439; 84443; 84484; 85025; 86850; 86900; 87077; 87186; 93005; 93922; 93970; 97165; 99285; A6261; J1644; J1940; G0463

== ENCOUNTER 2025-06-21 13:56 | Inpatient (IN) | payer MEDICARE, MEDICAID ==
[~2025-06-21] VITALS: Ht 167.6 cm; Wt 138.8 kg
[~2025-06-21 13:56] MED LIST changes: -APIX5TAB PO; -ASPI-1406 MT; +ATOR10TA69 PO; -LIP40 PO
[2025-06-21 14:15] VITALS: O2SAT 99
[2025-06-21] MEDS ORDERED: CLINDAMYCIN 600MG PREMIX 50 ML IV ONE (14:45)
[2025-06-21 15:28] LABS: BASOPHILS % 0.4 % (0.0-2.0); EOSINOPHILS % 2.3 % (0.0-5.0); HEMATOCRIT. 35.1 % (36.0-48.0); HEMOGLOBIN. 11.4 g/dL (12.0-16.0); LYMPHOCYTES % 26.8 % (20.0-50.0); MEAN PLATELET VOLUME 6.7 fl (7.4-10.4); MONOCYTES % 9.8 % (2.0-8.0); NEUTROPHILS % 60.7 % (40.0-76.0); PLATELET 233 x1000/uL (130-400); RED BLOOD CELL COUNT 3.41 mill/uL (4.2-5.4); RED CELL DISTRIBUTION WIDTH 14.5 % (11.6-14.6)
[2025-06-21] MEDS ORDERED: CLINDAMYCIN 600MG PREMIX 50 ML IV SCH (15:30)
[2025-06-21 15:37] LABS: INR 1.3
[2025-06-21 15:43] LABS: CREATININE 1.4 mg/dL (0.6-1.0); UREA NITROGEN BLOOD 21.0 mg/dL (9-23)
[2025-06-21] MEDS: CLINDAMYCIN 600MG PREMIX 50 ML IV SCH (16:24)
[2025-06-21] MEDS ORDERED: GUAIFENESIN 200MG/10ML SUGAR FREE UDC PO PRN (20:15)
[2025-06-21] MEDS ORDERED: ONDANSETRON HCL 4MG/2ML INJ IV PRN (20:15)
[2025-06-21] MEDS ORDERED: IPRATROPIUM/ALBUTEROL 0.5-3(2.5)MG/3ML NEB HHN PRN (20:15)
[2025-06-21] MEDS ORDERED: ACETAMINOPHEN 325MG TABLET PO PRN ×2 (20:15)
[2025-06-21] MEDS ORDERED: HYDROCODONE/ACETAMINOPHEN 7.5/325MG TABLET PO PRN (20:15)
[2025-06-21] MEDS ORDERED: DOCUSATE SODIUM 100MG CAPSULE PO PRN (20:15)
[2025-06-21] MEDS ORDERED: CLONIDINE 0.1MG TABLET PO PRN (20:15)
[2025-06-21] MEDS ORDERED: NALOXONE HCL 0.4MG/ML VIAL IV PRN (20:45)
[2025-06-21 21:45] VITALS: BP 107/52; PULSE 67; RESP 16; TEMP 36.418
[2025-06-21 22:06] LABS: FOLIC ACID (FOLATE) SERUM > 20.00 ng/mL (>5.38)
[2025-06-21 22:13] LABS: VITAMIN B12 SERUM 353 pg/mL (211-911)
[2025-06-22] VITALS: BP 107/52; PULSE 67; RESP 16; TEMP 36.4; O2SAT 100
[2025-06-22] MEDS: FAMOTIDINE 20MG TABLET PO SCH (01:12)
[2025-06-22] MEDS: ATORVASTATIN CALCIUM 10MG TABLET PO SCH (01:12)
[2025-06-22] MEDS: ENOXAPARIN 150MG/ML SYR SUBCUT SCH ×2 (01:14→21:12)
[2025-06-22] MEDS: CLINDAMYCIN 600MG PREMIX 50 ML IV SCH ×2 (01:26→15:02)
[2025-06-22 04:00] VITALS: BP 119/55; PULSE 62; RESP 16; TEMP 35.8; O2SAT 99
[2025-06-22 07:20] LABS: BASOPHILS % 0.4 % (0.0-2.0); EOSINOPHILS % 3.0 % (0.0-5.0); HEMATOCRIT. 34.2 % (36.0-48.0); HEMOGLOBIN. 11.4 g/dL (12.0-16.0); LYMPHOCYTES % 28.0 % (20.0-50.0); MEAN PLATELET VOLUME 6.6 fl (7.4-10.4); MONOCYTES % 8.5 % (2.0-8.0); NEUTROPHILS % 60.1 % (40.0-76.0); PLATELET 220 x1000/uL (130-400); RED BLOOD CELL COUNT 3.39 mill/uL (4.2-5.4); RED CELL DISTRIBUTION WIDTH 14.3 % (11.6-14.6)
[2025-06-22 07:51] LABS: CREATININE 1.2 mg/dL (0.6-1.0); TRIGLYCERIDE 40 mg/dL (0-150)
[2025-06-22 07:52] LABS: LDL CHOLESTEROL 47 mg/dL (5-100); UREA NITROGEN BLOOD 21 mg/dL (9-23)
[2025-06-22 07:53] LABS: ASPARTATE AMINOTRANSFERASE 17 IU/L (<34); BILIRUBIN DIRECT 0.5 mg/dL (<=3.0)
[2025-06-22 07:54] LABS: BILIRUBIN TOTAL 1.1 mg/dL (0.1-1.0); PROTEIN TOTAL 7.6 g/dL (6.0-8.3)
[2025-06-22 08:00] VITALS: BP 104/56; PULSE 67; RESP 16; TEMP 35.8; O2SAT 96
[2025-06-22] MEDS: ASPIRIN 81MG TABLET PO SCH (09:00)
[2025-06-22] MEDS: FUROSEMIDE 40MG TABLET PO SCH (09:15)
[2025-06-22 12:00] VITALS: BP 108/55; PULSE 66; RESP 16; TEMP 35.8; O2SAT 97
[2025-06-22 16:00] VITALS: BP 100/79; PULSE 76; RESP 16; TEMP 36.9; O2SAT 96
[2025-06-22] MEDS ORDERED: CALCIUM GLUBIONATE 1.8 GM/5 ML PO ONE (16:45)
[2025-06-22 20:00] VITALS: BP 120/72; PULSE 72; RESP 19; TEMP 36.5; O2SAT 95
[2025-06-23] MEDS ORDERED: LIDOCAINE HCL 1% 10 MG/ML 10ML VIAL ONE (07:17)
[2025-06-23 08:00] VITALS: BP 123/62; PULSE 71; RESP 17; TEMP 36.3; O2SAT 96
[2025-06-23] MEDS: IOHEXOL-350 100 ML BOTTLE ONE (09:38)
[2025-06-23] MEDS: IOHEXOL-350 50 ML BOTTLE ONE (09:38)
[2025-06-23 12:00] VITALS: BP 129/61; PULSE 78; RESP 18; TEMP 35.9; O2SAT 100
[2025-06-23 16:00] VITALS: BP 107/54; PULSE 97; RESP 20; TEMP 36.3; O2SAT 100
[2025-06-23] MEDS: CALCIUM 1250MG TABLET (500MG ELEMENTAL CALCIUM) PO SCH (17:09)
[2025-06-23 20:00] VITALS: BP 128/62; PULSE 83; RESP 16; TEMP 36.7; O2SAT 97
[2025-06-24] VITALS: BP 122/59; PULSE 78; RESP 18; TEMP 36.7; O2SAT 98
[2025-06-24 04:00] VITALS: BP 122/78; PULSE 78; RESP 19; TEMP 36.8; O2SAT 97
[2025-06-24] MEDS: MAGNESIUM/ALUMINUM HYDROXIDE/SIMETHICONE 30ML UDC PO PRN (06:01)
[2025-06-24 08:00] VITALS: BP 121/52; PULSE 74; RESP 20; TEMP 36.3; O2SAT 98
[2025-06-24 12:00] VITALS: BP 126/59; PULSE 76; RESP 20; TEMP 36.2; O2SAT 98
[2025-06-24] MEDS ORDERED: PHEN-909 PO (12:49)
[2025-06-24] MEDS ORDERED: DULO30CA52 PO (12:54)
[2025-06-24] MEDS ORDERED: CLIN-194 MT ×2 (13:00→13:01)
[2025-06-24] MEDS ORDERED: ASPI-1160 PO (13:00)
[2025-06-24] MEDS ORDERED: FAMO20TA8 PO (13:00)
[2025-06-24] MEDS ORDERED: FURO40TA5 PO (13:00)
[2025-06-24] MEDS ORDERED: ATOR10TA69 PO (13:00)
[2025-06-24] MEDS ORDERED: DOCU-422 PO (13:00)
[2025-06-24 16:00] VITALS: BP 130/64; PULSE 88; RESP 17; TEMP 36.5; O2SAT 98
[2025-06-24 16:05] VITALS: BP 130/64; PULSE 88; RESP 17; TEMP 97.7
== END 2025-06-24 17:40 | disposition home health service (06) | DRG 603 ==
LOC: ER 13:56 → 7EST 17:38 → EDBEDREQTM 17:42 → EDBEDREQ 17:42
PROVIDERS: ADMIT Hospitalist; ATTEND Hospitalist
PROC: 05HY33Z Insertion of Infusion Device into Upper Vein, Percutaneous Approach (ICD-10-PCS; principal; 2025-06-23)
DX: L03.115 Cellulitis of right lower limb (principal); N17.9 Acute kidney failure, unspecified; I13.0 Hypertensive heart and chronic kidney disease with heart failure and stage 1 through stage 4 chronic kidney disease, or unspecified chronic kidney disease; I50.22 Chronic systolic (congestive) heart failure; I47.19 Other supraventricular tachycardia; I87.001 Postthrombotic syndrome without complications of right lower extremity; E78.5 Hyperlipidemia, unspecified; N18.9 Chronic kidney disease, unspecified; J44.89 Other specified chronic obstructive pulmonary disease; D64.9 Anemia, unspecified; E66.01 Morbid (severe) obesity due to excess calories; Z88.1 Allergy status to other antibiotic agents; Z88.0 Allergy status to penicillin; Z88.2 Allergy status to sulfonamides; Z88.8 Allergy status to other drugs, medicaments and biological substances; Z79.899 Other long term (current) drug therapy; Z79.82 Long term (current) use of aspirin; Z88.3 Allergy status to other anti-infective agents; Z93.3 Colostomy status; Z99.3 Dependence on wheelchair; Z79.01 Long term (current) use of anticoagulants
CPT/HCPCS: 36415; 36573; 73610; 75635; 80048; 80061; 80076; 82607; 82728; 82746; 83540; 83550; 83605; 83880; 84145; 84443; 85025; 86850; 86900; 93005; 93306; 93922; 93971; 96365; 97162; 97166; 99285; A4606; C1725; J1650; J2003; J3490; Q9967